=== PATIENT | female | born 1935 | race Caucasian/White ===

== ENCOUNTER → 2016-05-14 | Outpatient (CLI) | payer OTHER ==
[~2016-05-14] MED LIST: ACETAMINOPHEN-1 EAC1 PO; APAP/CODEINE ELI5 M1 OR; ASPIRIN325 PO; BISAC-EVAC10 MG RC; BISACODYL SUPP10 MG RECTAL; BISACODYL5 MG PO; CHILDREN'S650 MG/20. PO; CIPRO250 M1 PO; CLONAZEPAM 0.50.5 M1 PO; CLONAZEPAM PO; COLACE100 MG PO; CYCLOBENZAPRINE10 MG PO; DELTASONE20 MG PO; DESYREL50 MG PO; DULCOLAX RE; DUONEB 2.5-0.5 M3 ML IH; ENOXAPARIN40 MG/0.4 SQ; FAMOTIDINE20 MG PO; FLORANEX GRANU1 EACH PO; HALCION0.25 MG PO; HYDROCODON-ACE1 EAC7 PO; IBUPROFEN 600600 M1 PO; IMODIUM MULTI-1 EACH PO; KEFLEX250 MG PO; KEFLEX500 MG PO; KEPPRA 100100 MG/M1 PO; KEPPRA 500 MG500 M1 IV; KEPPRA 500 MG500 MG PO; LASIX 20 MG TAB20 MG PO; LIQUID B-11000 MCG/1 PO; LOVENOX SQ; MACROBID 100 M100 M1 PO; MULTIVITAMINS1 EAC7; NEOSPORIN OINTM15 GM; NORCO 5-325 TA1 EACH PO; ONDANSETRON ODT4 MG PO; OSELB75 PO; PAIN & FEVER325 MG PO; PHENADOZ25 MG RC; PRAVASTATIN SOD20 MG PO; PREDNISONE 20 M20 MG PO; REMERON15 MG PO; SLEEPING PILL; TRAMADOL 50 MG50 MG PO; TRAZODONE HCL50 MG PO; TUMS PO; TYLENOL325 MG PO; UNICOMPLEX M TA1 TA1 PO; VENTOLIN HFA 1818 GM INH; VITAMIN B-1100 M1 PO; ZOSYN 3.373.375 GM/1 IV
== END ==
LOC: RAD 10:59 → BC 05-18 08:54
DX: R92.2 Inconclusive mammogram (principal)

== ENCOUNTER 2016-10-02 17:34 | Emergency (ER) | payer OTHER ==
[~2016-10-02] VITALS: Ht 152.4 cm; Wt 72.6 kg
--- NOTE | ~2016-10-02 | EKG ---
[address] [address] ELECTROCARDIOGRAM REPORT Name: VALERI MARINELLI [id number] Admission: 10/02/16 Attend Phys: Discharge: 10/02/16 Date of : 37 Report #: [id number] THIS REPORT FOR: //name// [facility] ED Test Date: 2016-10-02 Test Time: 18:27:08 Pat Name: VALERI MARINELLI Department: Room: Gender: F Plate Keeper: MZOOK : 1935 Requested By: Kristine Apple Order Number: [id number] MD: Rony Arriola Measurements Intervals [place] Rate: 60 P: 40 [place]: 171 QRS: -21 QRSD: 101 T: 0 QT: 455 QTc: 455 Interpretive Statements Sinus rhythm Low voltage, precordial leads Probable left ventricular hypertrophy Borderline T abnormalities, diffuse leads Compared to ECG 06/05/2016 12:07:08 Electronically Signed On 10-03-2016 22:18:18 CDT by Rony Arriola [email or web address] <ELECTRONICALLY SIGNED> By: Rony Arriola MD [id number] 26 Rony Arriola MD /ANAI
[~2016-10-02 17:34] MED LIST changes: +CIPRO500 MG PO; +HYDROCODONE-AP1 EAC6 PO; +MOBIC15 MG PO
[2016-10-02 18:14] LABS: ABSOLUTE NEUTROPHILS 6.5 thou/uL (1.4-8.2); BASOPHILS 0.8 % (0.0-2.0); EOSINOPHILS 0.9 % (0.0-3.0); HEMATOCRIT 42.9 % (37.0-47.0); HEMOGLOBIN 14.2 gm/dL (12.0-15.0); LYMPHOCYTES 27.8 % (24.0-44.0); MCH 31.2 pg (26.0-34.0); MCV 94.5 fL (80.0-100.0); MONOCYTES 6.2 % (1.0-8.0); PLATELET COUNT 234 thou/uL (150-400); POLYS 64.3 % (36.0-66.0); RBC 4.54 mil/uL (4.20-5.00); RDW 13.5 % (10.5-14.5); WBC 10.2 thou/uL (4.0-11.0)
[2016-10-02 18:18] LABS: MANUAL DIFF NO
[2016-10-02 18:48] LABS: URINE BILIRUBIN NEGATIVE (Negative); URINE BLOOD 1+ (Negative); URINE COLOR YELLOW; URINE GLUCOSE-RANDOM* NEGATIVE (Negative); URINE KETONES NEGATIVE (Negative); URINE NITRITE POSITIVE (Negative); URINE PROTEIN (DIPSTICK) NEGATIVE (Negative); URINE UROBILINOGEN 0.2 E.U./dl (0.2-1.0)
[2016-10-02 18:58] LABS: BACTERIA >30 Many /HPF (None Seen); CASTS None Seen /LPF (None Seen); CRYSTALS None Seen /LPF (None Seen); SQUAMOUS 0-3 Few /LPF (0-3); URINE RBC 0-2 Rare /HPF (0-2); URINE WBC 0-5 Rare /HPF (0-5)
[2016-10-02 19:23] VITALS: BP 126/52
[2016-10-08] MEDS ORDERED: TYLENOL325 MG PO (17:18)
== END 2016-10-02 19:38 | disposition home or self-care (01) ==
LOC: ER 17:34
PROVIDERS: Nurse Practitioner Family
DX: S00.03XA Contusion of scalp, initial encounter (principal); F10.120 Alcohol abuse with intoxication, uncomplicated; N39.0 Urinary tract infection, site not specified; E78.00 Pure hypercholesterolemia, unspecified; Z90.710 Acquired absence of both cervix and uterus; Z98.890 Other specified postprocedural states; Z88.5 Allergy status to narcotic agent; Z88.8 Allergy status to other drugs, medicaments and biological substances; W01.0XXA Fall on same level from slipping, tripping and stumbling without subsequent striking against object, initial encounter; Y93.01 Activity, walking, marching and hiking; Y92.89 Other specified places as the place of occurrence of the external cause; Y99.8 Other external cause status

== ENCOUNTER 2016-10-03 18:59 | Inpatient (IN) | payer OTHER ==
[~2016-10-03] VITALS: Ht 152.4 cm; Wt 72.8 kg
--- NOTE | ~2016-10-03 | HC ---
[facility] [place] [address] CONSULTATION Name: VALERI MARINELLI Room #: 462-P ADM IN M.R.#: [id number] Admission: 10/03/16 Attend Phys: Rohith Persaud MD Discharge: Date of : 37 Report #: [id number] THIS REPORT FOR: //name// CC: Michelle Persaud DATE OF SERVICE: 10/05/2016 HISTORY OF PRESENT ILLNESS: The patient is a 80-year-old white female who had a fall in her apartment, sustained a scalp laceration. She denied any loss of consciousness. She was noted to have an elevated alcohol level, however, in the Emergency Department at 151. She was diagnosed with a urinary tract infection. She denied being alcoholic, notes that she only has an occasional beer every few days. She notes that she is 90% blind. The patient has been admitted for further evaluation. She has had problems with agitation, warranting Haldol. We are seeing her in Rehabilitation Medicine consultation. CT of the head was negative. She is on alcohol withdrawal program. She is on antibiotics for the urinary tract infection. 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 PAST SURGICAL HISTORY: Craniotomy for a subarachnoid hemorrhage with some residual left upper and left lower extremity numbness, bilateral cataract surgery, hemorrhoidectomy, hysterectomy, neck plate, history of broken neck x 2. MEDICATIONS: Please see the full medication listing. FAMILY HISTORY: Siblings with same genetic disorder involving vision. HABITS: ETOH as noted above. She notes weekly 2-3 times a week, 1-2 beers at a time. No history of tobacco abuse. SOCIAL HISTORY: Lives in independent living apartment at [facility]. There is reference to her not using any gait aids and another reference to her utilizing a walker. But there are visual issues, she could get around in her apartment well, but has difficulty obviously in other places. REVIEW OF SYSTEMS: Did not offer any current complaints of chest pain, shortness of breath or abdominal discomfort. PHYSICAL EXAMINATION: A 80-year-old white female sitting up in her bedside chair. Her right eye is partially closed with some apparent ptosis with a scraper excoriation on the forehead above the eye. I introduced myself as it was not apparent that she could see me. Facies otherwise appeared symmetric. She has functional range of motion of both upper extremities, strength is grade [facility] [address] [place] [address] CONSULTATION Name: VALERI MARINELLI Room #: 462-P [facility] IN M.R.#: [id number] Admission: 10/03/16 Attend Phys: Rohith Persaud MD Discharge: Date of : 37 Report #: [id number] 3+ to 4-/5. Lower extremities, no focal calf swelling. Strength grade 3+ to 4-/5. The patient was confused thinking she was at [facility] and was incorrect regarding the year. She does follow basic 1 step commands albeit with some latency. ASSESSMENT: A 80-year-old white female with the following problem list: 1. Fall with head laceration/cognitive deficits. She has had some problems with agitation and warranting Haldol. 2. Blindness/approximately 90% with history of retinitis pigmentosa. 3. ETOH use with elevated ETOH on admission. 4. Recent urinary tract infection. 5. Hypokalemia and hypomagnesemia that are being replaced. PLAN: Therapy evaluations are underway. Insurance will need to be checked regarding rehab therapy issues as she further medically stabilizes. Thank you for asking us to assist in this patient's care. ADDENDUM: She has had bilateral wrists restrained per order from yesterday as well. By: 1038 1105 Finn Kirby MD /nt
--- NOTE | ~2016-10-03 | EKG ---
[address] [place] [address] ELECTROCARDIOGRAM REPORT Name: VALERI MARINELLI Room #: 462-P ADM IN M.R.#: [id number] Admission: 10/03/16 Attend Phys: Airam Marie Discharge: Date of : 37 Report #: [id number] THIS REPORT FOR: //name// [facility] ED Test Date: 2016-10-03 Test Time: 19:05:52 Pat Name: VALERI MARINELLI Department: Room: 462 Gender: F Sustainable Design Coordinator: HOANG : 1935 Requested By: Kathleen Mcleod Order Number: [id number] MD: Rony Arriola Measurements Intervals [place] Rate: 63 P: 44 ND: 173 QRS: -21 QRSD: 99 T: 7 QT: 439 QTc: 450 Interpretive Statements Sinus rhythm Borderline left axis deviation Low voltage, precordial leads Borderline T abnormalities, diffuse leads Compared to ECG 06/05/2016 12:07:08 No significant changes Electronically Signed On 10-03-2016 22:23:40 CDT by Rony Arriola [email or web address] <ELECTRONICALLY SIGNED> By: Rony Arriola MD 10/03/16 2223 04 Rony Arriola MD /EPI
[2016-10-03 19:01] VITALS: BP 121/46
[2016-10-03 20:27] LABS: ABSOLUTE NEUTROPHILS 5.3 thou/uL (1.4-8.2); BASOPHILS 1.2 % (0.0-2.0); EOSINOPHILS 1.3 % (0.0-3.0); HEMATOCRIT 37.9 % (37.0-47.0); HEMOGLOBIN 12.9 gm/dL (12.0-15.0); LYMPHOCYTES 33.4 % (24.0-44.0); MCH 31.7 pg (26.0-34.0); PLATELET COUNT 253 thou/uL (150-400); POLYS 55.1 % (36.0-66.0); RBC 4.07 mil/uL (4.20-5.00); RDW 13.4 % (10.5-14.5); WBC 9.6 thou/uL (4.0-11.0)
[2016-10-03 20:28] LABS: MANUAL DIFF NO
[2016-10-03 20:39] LABS: ANION GAP 12 mmol/L (7-16); BUN 7 mg/dL (7-18); CALCIUM 6.6 mg/dL (8.5-10.1); CHLORIDE 113 mmol/L (98-107); CO2 20 mmol/L (21-32); CREATININE 0.5 mg/dL (0.6-1.0); GLUCOSE 69 mg/dL (74-106); SODIUM 145 mmol/L (136-145)
[2016-10-03 20:41] LABS: POTASSIUM 2.7 mmol/L (3.5-5.1)
[2016-10-03 20:42] LABS: TROPONIN-I < 0.04 ng/mL (<0.04-0.07)
[2016-10-03 21:45] VITALS: BP 133/71
[2016-10-03 22:05] VITALS: BP 126/50
[2016-10-04] VITALS: BP 126/53
[2016-10-04 01:16] LABS: ALBUMIN 2.8 g/dL (3.4-5.0); ALKALINE PHOSPHATASE 61 U/L (46-116); DIRECT BILIRUBIN < 0.1 mg/dL (<0.1-0.3); SGOT 18 U/L (15-37); SGPT 12 U/L (30-65); TOTAL BILIRUBIN 0.2 mg/dL (<0.1-1.0); TOTAL PROTEIN 5.2 g/dL (6.4-8.2)
[2016-10-04 04:08] VITALS: BP 149/77
[2016-10-04 08:11] VITALS: BP 170/73
[2016-10-04 11:49] LABS: CREATININE 0.6 mg/dL (0.6-1.0); MAGNESIUM 2.3 mg/dL (1.8-2.4)
[2016-10-04 11:55] LABS: CALCIUM 8.8 mg/dL (8.5-10.1); POTASSIUM 5.1 mmol/L (3.5-5.1)
[2016-10-04 13:28] VITALS: BP 158/74
[2016-10-04 16:54] VITALS: BP 132/75
[2016-10-04 20:16] VITALS: BP 162/77
[2016-10-05 05:41] LABS: HEMATOCRIT 40.2 % (37.0-47.0); HEMOGLOBIN 13.3 gm/dL (12.0-15.0); MCH 31.2 pg (26.0-34.0); MCHC 33.2 g/dL (28.0-37.0); MCV 93.8 fL (80.0-100.0); RBC 4.28 mil/uL (4.20-5.00); RDW 13.2 % (10.5-14.5); WBC 12.2 thou/uL (4.0-11.0)
[2016-10-05 05:42] LABS: MANUAL DIFF YES
[2016-10-05 05:54] LABS: CALCIUM 8.4 mg/dL (8.5-10.1); CREATININE 0.5 mg/dL (0.6-1.0); POTASSIUM 4.2 mmol/L (3.5-5.1)
[2016-10-05 06:03] VITALS: BP 134/50
[2016-10-05 08:32] LABS: ABSOLUTE NEUTROPHILS 7.4 thou/uL (1.4-8.2); TOTAL CELL COUNT 100
[2016-10-05 10:17] VITALS: BP 150/86
[2016-10-05 12:44] LABS: PLATELET COUNT 184 thou/uL (150-400)
[2016-10-05 14:47] VITALS: BP 172/76
[2016-10-05 16:52] VITALS: BP 145/82
[2016-10-05 18:57] VITALS: BP 154/86
[2016-10-06 04:30] VITALS: BP 133/58
[2016-10-06 09:00] VITALS: BP 134/48
[2016-10-06 11:41] VITALS: BP 143/70
[2016-10-06 15:29] VITALS: BP 152/77
[2016-10-06 20:07] VITALS: BP 179/55
[2016-10-07 03:30] VITALS: BP 148/69
[2016-10-07 08:00] VITALS: BP 170/86
[2016-10-07] MEDS ORDERED: TRAZODONE HCL50 MG PO (11:54)
[2016-10-07] MEDS ORDERED: PEPCID20 MG PO (11:54)
[2016-10-07] MEDS ORDERED: KEFLEX500 MG PO (11:54)
[2016-10-07] MEDS ORDERED: TRIPLE ANTIBIOT28 G1 TOP (11:54)
[2016-10-07] MEDS ORDERED: PRENATAL PO (11:54)
[2016-10-07] MEDS ORDERED: FOLIC ACID1 MG PO (11:54)
[2016-10-07] MEDS ORDERED: VITAMIN B-1100 M2 PO (11:54)
[2016-10-07 12:00] VITALS: BP 166/82
[2016-10-07 14:06] VITALS: BP 166/82
[2016-10-07 14:26] VITALS: BP 166/82
[2016-10-08] MEDS ORDERED: TYLENOL325 MG PO (17:18)
== END 2016-10-07 14:41 | disposition home health service (06) | DRG 580 ==
LOC: ER 18:59 → EROBS 21:06 → 4W 21:06
PROVIDERS: Emergency Medicine; Internal Medicine; Nurse Practitioner Acute Care
PROC: 0WQ0XZZ Repair Head, External Approach (ICD-10-PCS; principal; 2016-10-03)
DX: S01.01XA Laceration without foreign body of scalp, initial encounter (principal); N39.0 Urinary tract infection, site not specified; E78.00 Pure hypercholesterolemia, unspecified; E87.6 Hypokalemia; E83.42 Hypomagnesemia; H54.0 Blindness, both eyes; F10.129 Alcohol abuse with intoxication, unspecified; W18.39XA Other fall on same level, initial encounter; E87.8 Other disorders of electrolyte and fluid balance, not elsewhere classified; Z90.710 Acquired absence of both cervix and uterus; Z79.899 Other long term (current) drug therapy; Z88.5 Allergy status to narcotic agent; Z88.8 Allergy status to other drugs, medicaments and biological substances; Z98.42 Cataract extraction status, left eye; Z98.41 Cataract extraction status, right eye; Z84.89 Family history of other specified conditions; Z87.440 Personal history of urinary (tract) infections; Y93.89 Activity, other specified; Y92.038 Other place in apartment as the place of occurrence of the external cause; Y99.8 Other external cause status; B96.1 Klebsiella pneumoniae [K. pneumoniae] as the cause of diseases classified elsewhere
CPT/HCPCS: 10045

== ENCOUNTER 2016-12-03 10:09 | Emergency (ER) | payer OTHER ==
[~2016-12-03] VITALS: Ht 152.4 cm; Wt 69.0 kg
[~2016-12-03 10:09] MED LIST changes: +FOLIC ACID1 MG PO; +PEPCID20 MG PO; +PRENATAL PO; +TRIPLE ANTIBIOT28 G1 TOP; +VITAMIN B-1100 M2 PO
[2016-12-03 13:13] VITALS: BP 132/56
== END 2016-12-03 13:00 | disposition home or self-care (01) ==
LOC: ER 10:09
DX: M84.375A Stress fracture, left foot, initial encounter for fracture (principal); F10.99 Alcohol use, unspecified with unspecified alcohol-induced disorder; E78.00 Pure hypercholesterolemia, unspecified; Z90.710 Acquired absence of both cervix and uterus; Z98.890 Other specified postprocedural states; Z88.5 Allergy status to narcotic agent; Z88.8 Allergy status to other drugs, medicaments and biological substances

== ENCOUNTER 2017-02-21 03:38 | Emergency (ER) | payer OTHER ==
[~2017-02-21] VITALS: Ht 152.4 cm; Wt 68.0 kg
--- NOTE | ~2017-02-21 | EKG ---
[facility] [place] [address] ELECTROCARDIOGRAM REPORT Name: VALERI MARINELLI [facility] [id number] Admission: 02/21/17 Attend Phys: Discharge: 02/21/17 Date of : 37 Report #: [id number] THIS REPORT FOR: //name// [facility] ED Test Date: 2017-02-21 Test Time: 05:43:04 Pat Name: VALERI MARINELLI Department: Room: Gender: F Senior Biostatistician: [facility] : 1935 Requested By: Carson Mccormack Order Number: [id number] MD: Reg Camarena Measurements Intervals [place] Rate: 69 P: 68 [place]: 167 QRS: -17 QRSD: 96 T: -2 QT: 432 QTc: 463 Interpretive Statements Sinus rhythm Borderline left axis deviation Abnormal R-wave progression, early transition Borderline T abnormalities, inferior leads Compared to ECG 10/03/2016 19:05:52 No significant changes Electronically Signed On 02-21-2017 10:15:32 PIN BALL MACHINE MECHANIC by Reg Camarena [email or web address] <ELECTRONICALLY SIGNED> By: Reg Camarena MD, [facility] 02/21/17 1015 0543 0543 Reg Camarena MD, [facility] /EPI
[2017-02-21 04:11] LABS: URINE BILIRUBIN NEGATIVE (Negative); URINE BLOOD TRACE (Negative); URINE CLARITY CLEAR; URINE COLOR YELLOW; URINE GLUCOSE-RANDOM* NEGATIVE (Negative); URINE KETONES NEGATIVE (Negative); URINE LEUKOCYTES-REFLEX NEGATIVE (Negative); URINE NITRITE-REFLEX NEGATIVE (Negative); URINE PROTEIN (DIPSTICK) NEGATIVE (Negative); URINE SPECIFIC GRAVITY 1.015 (1.005-1.035); URINE UROBILINOGEN 0.2 E.U./dl (0.2-1.0)
[2017-02-21 04:20] LABS: AMP/METHAMP Negative (Negative); BARBITURATES Negative (Negative); BENZODIAZEPINES Negative (Negative); COCAINE Negative (Negative); METHADONE Negative (Negative); OPIATES POSITIVE (Negative); PCP Negative (Negative)
[2017-02-21 05:35] LABS: ABSOLUTE NEUTROPHILS 7.2 thou/uL (1.4-8.2); BASOPHILS 0.5 % (0.0-2.0); EOSINOPHILS 0.8 % (0.0-3.0); HEMATOCRIT 37.2 % (37.0-47.0); HEMOGLOBIN 12.6 gm/dL (12.0-15.0); LYMPHOCYTES 17.2 % (24.0-44.0); MCH 31.1 pg (26.0-34.0); MCHC 33.9 g/dL (28.0-37.0); MCV 91.8 fL (80.0-100.0); MONOCYTES 9.1 % (1.0-8.0); PLATELET COUNT 171 thou/uL (150-400); POLYS 72.4 % (36.0-66.0); RBC 4.05 mil/uL (4.20-5.00)
[2017-02-21 05:59] LABS: ANION GAP 9 mmol/L (7-16); BUN 7 mg/dL (7-18); CALCIUM 9.1 mg/dL (8.5-10.1); CHLORIDE 105 mmol/L (98-107); CO2 26 mmol/L (21-32); CREATININE 0.8 mg/dL (0.6-1.0); GLUCOSE 121 mg/dL (74-106); SODIUM 140 mmol/L (136-145)
[2017-02-21 06:07] LABS: ALBUMIN 3.7 g/dL (3.4-5.0); MAGNESIUM 1.8 mg/dL (1.8-2.4); SALICYLATE < 2.8 mg/dL (2.8-20.0); SGOT 24 U/L (15-37); SGPT 17 U/L (30-65); TOTAL BILIRUBIN 0.5 mg/dL (<0.1-1.0); TOTAL PROTEIN 6.7 g/dL (6.4-8.2); TROPONIN-I < 0.04 ng/mL (<0.06)
[2017-02-21] MEDS ORDERED: TRAMADOL 50 MG50 MG PO (06:15)
[2017-02-21 08:00] VITALS: BP 162/66
== END 2017-02-21 08:02 | disposition home or self-care (01) ==
LOC: ER 03:38
PROVIDERS: Emergency Medicine
DX: R41.0 Disorientation, unspecified (principal); S51.011A Laceration without foreign body of right elbow, initial encounter; S60.221A Contusion of right hand, initial encounter; E78.00 Pure hypercholesterolemia, unspecified; Z88.8 Allergy status to other drugs, medicaments and biological substances; Z88.5 Allergy status to narcotic agent; W01.0XXA Fall on same level from slipping, tripping and stumbling without subsequent striking against object, initial encounter; Y93.89 Activity, other specified; Y92.89 Other specified places as the place of occurrence of the external cause; Y99.8 Other external cause status

== ENCOUNTER 2017-02-22 08:17 | Observation (INO) | payer OTHER ==
[~2017-02-22] VITALS: Ht 152.4 cm; Wt 68.0 kg
--- NOTE | ~2017-02-22 | EKG ---
[address] [place] [address] ELECTROCARDIOGRAM REPORT Name: VALERI MARINELLI Room #: 170-10 ADM IN M.R.#: [id number] Admission: 02/22/17 Attend Phys: Dayne Almazan DO Discharge: Date of : 37 Report #: [id number] THIS REPORT FOR: //name// [facility] ED Test Date: 2017-02-22 Test Time: 08:38:59 Pat Name: VALERI MARINELLI Department: Room: 170 Gender: F Spring Machine Operator: mary : 1935 Requested By: Gerson White Order Number: [id number] MD: Rony Arriola Measurements Intervals [place] Rate: 67 P: 55 [place]: 167 QRS: -15 QRSD: 99 T: -19 QT: 450 QTc: 475 Interpretive Statements Sinus rhythm Borderline left axis deviation Abnormal R-wave progression, early transition Borderline T abnormalities, inferior leads Compared to ECG 02/21/2017 05:43:04 No significant changes Electronically Signed On 02-22-2017 15:31:15 GROUP RESERVATIONS COORDINATOR by Rony Arriola [email or web address] <ELECTRONICALLY SIGNED> By: Rony Arriola MD 02/22/17 1531 Rony Arriola MD /EPI
--- NOTE | ~2017-02-22 | HC ---
[facility] [place] [address] CONSULTATION Name: VALERI MARINELLI Room #: 353-P SOHA Barton#: [id number] Admission: 02/22/17 Attend Phys: Dayne Almazan DO Discharge: 02/25/17 Date of : 37 Report #: [id number] THIS REPORT FOR: //name// CC: Michelle Almazan DATE OF SERVICE: 02/23/2017 HISTORY OF PRESENT ILLNESS: The patient is a 81-year-old white female with a history of several falls. She notes she typically would fall every 2-3 months, but she has had problems especially over the last couple of weeks when she notes that her son and with the and she has been having some difficulty in the aftermath of that. She does have a history of chronic pain syndrome, has been seen by Geriatrics here at the hospital and thought to have some depression and likely some of her medication use is contributing to these falls. She also had been diagnosed with urinary tract infection a couple of days prior to this most current admission. She has a known history of alcohol abuse, but alcohol was noted to be negative at the time of admission. We are seeing her in rehabilitation medicine consultation. PAST MEDICAL HISTORY: Includes prior craniotomy for a subarachnoid hemorrhage with some residual left upper extremity and lower extremity numbness and weakness. She has chronic pain syndrome, history of ETOH abuse in the past, and urinary tract infection. ALLERGIES: Multiple, see the listing. MEDICATIONS: Please see the full medication listing as well. SOCIAL HISTORY: Lives in an independent living apartment alone, used a walker. She does have visual problems with history of retinitis pigmentosa and is noted to be legally blind. She did use a walker for ambulation premorbidly. REVIEW OF SYSTEMS: No current complaints of chest pain, shortness of breath, or abdominal discomfort. PHYSICAL EXAMINATION: GENERAL: A 81-year-old white female, in no obvious distress. The patient is alert, pleasant. VITAL SIGNS: Last recorded temperature 98, pulse 66, respirations 18, and blood pressure is 149/68. HEENT: She does have the decreased vision and is noted to be legally blind. Facies are symmetric. NEUROLOGIC: Functional range of motion of the upper extremity. Strength is grade 4-/5. DTRs are trace to 1. Lower extremities, no focal calf swelling. Functional range of motion. Strength is grade 3+ to 4-/5. DTRs are trace to 1. [facility] [address] [place] [address] CONSULTATION Name: VALERI MARINELLI Room #: 353-P [facility] Melissa Barton#: [id number] Admission: 02/22/17 Attend Phys: Dayne Almazan DO Discharge: 02/25/17 Date of : 37 Report #: [id number] Therapy evaluations are underway. She is currently contact guard for transfers, did ambulate 4 steps, contact guard assistance. ASSESSMENT: A 81-year-old white female with the following problem list: 1. History of multiple falls. Agree with Geriatrics that likely her medication use is contributing. 2. Depression/adjustment disorder/grieving. Recently lost her son a couple of weeks ago. 3. Recent urinary tract infection. 4. Chronic pain syndrome. 5. Past history of ETOH abuse. Level was not elevated upon admission. 6. History of legally blind with retinitis pigmentosa. PLAN: Therapies are continuing to work with her on transfers, mobility, and ADL issues. She is wanting to return directly back to her own apartment. I encouraged her to show what she could do functionally. Case Management to follow as well. Insurance will need to be checked regarding rehab therapy issues if warranted. We will be glad to follow along with you regarding her rehab therapy needs. <ELECTRONICALLY SIGNED> By: Finn Kirby MD 04/08/17 1408 1213 2138 Finn Kirby MD /nt
[2017-02-22 08:17] VITALS: BP 153/74
[2017-02-22 08:53] LABS: URINE BILIRUBIN NEGATIVE (Negative); URINE BLOOD NEGATIVE (Negative); URINE CLARITY CLEAR; URINE COLOR YELLOW; URINE GLUCOSE-RANDOM* NEGATIVE (Negative); URINE KETONES 1+ (Negative); URINE LEUKOCYTES-REFLEX NEGATIVE (Negative); URINE NITRITE-REFLEX NEGATIVE (Negative); URINE PROTEIN (DIPSTICK) NEGATIVE (Negative); URINE UROBILINOGEN 0.2 E.U./dl (0.2-1.0)
[2017-02-22 08:59] LABS: HEMOGLOBIN 13.5 gm/dL (12.0-15.0); MCH 31.7 pg (26.0-34.0); MCHC 34.6 g/dL (28.0-37.0); MCV 91.5 fL (80.0-100.0); RBC 4.26 mil/uL (4.20-5.00); RDW 13.1 % (10.5-14.5); WBC 10.4 thou/uL (4.0-11.0)
[2017-02-22 09:06] LABS: AMP/METHAMP Negative (Negative); BARBITURATES Negative (Negative); BENZODIAZEPINES Negative (Negative); COCAINE Negative (Negative); METHADONE Negative (Negative); OPIATES POSITIVE (Negative); PCP Negative (Negative)
[2017-02-22 09:14] LABS: ANION GAP 8 mmol/L (7-16); BUN 9 mg/dL (7-18); CALCIUM 9.7 mg/dL (8.5-10.1); CHLORIDE 106 mmol/L (98-107); CO2 28 mmol/L (21-32); CREATININE 0.8 mg/dL (0.6-1.0); GLUCOSE 120 mg/dL (74-106); POTASSIUM 4.2 mmol/L (3.5-5.1); SODIUM 142 mmol/L (136-145)
[2017-02-22 09:22] LABS: TROPONIN-I < 0.04 ng/mL (<0.06)
[2017-02-22 17:20] VITALS: BP 152/68
[2017-02-22 18:16] VITALS: BP 152/68
[2017-02-22 23:57] VITALS: BP 139/55
[2017-02-23 03:54] VITALS: BP 166/72
[2017-02-23 04:40] LABS: CALCIUM 8.5 mg/dL (8.5-10.1); CREATININE 0.7 mg/dL (0.6-1.0); POTASSIUM 3.4 mmol/L (3.5-5.1)
[2017-02-23 07:07] LABS: ABSOLUTE NEUTROPHILS 4.4 thou/uL (1.4-8.2); BASOPHILS 0.4 % (0.0-2.0); EOSINOPHILS 2.2 % (0.0-3.0); HEMATOCRIT 35.1 % (37.0-47.0); HEMOGLOBIN 12.4 gm/dL (12.0-15.0); LYMPHOCYTES 25.8 % (24.0-44.0); MCH 31.7 pg (26.0-34.0); MCHC 35.4 g/dL (28.0-37.0); MCV 89.4 fL (80.0-100.0); MONOCYTES 8.8 % (1.0-8.0); PLATELET COUNT 162 thou/uL (150-400); POLYS 62.8 % (36.0-66.0); RBC 3.93 mil/uL (4.20-5.00); RDW 13.3 % (10.5-14.5)
[2017-02-23 07:55] VITALS: BP 149/68
[2017-02-23 17:10] VITALS: BP 171/87
[2017-02-23 19:40] VITALS: BP 134/71
[2017-02-24 03:38] VITALS: BP 129/69
[2017-02-24 05:50] LABS: ABSOLUTE NEUTROPHILS 5.2 thou/uL (1.4-8.2); BASOPHILS 0.3 % (0.0-2.0); EOSINOPHILS 2.2 % (0.0-3.0); HEMATOCRIT 35.9 % (37.0-47.0); HEMOGLOBIN 12.2 gm/dL (12.0-15.0); LYMPHOCYTES 25.2 % (24.0-44.0); MCH 31.8 pg (26.0-34.0); MCHC 33.9 g/dL (28.0-37.0); MCV 93.6 fL (80.0-100.0); MONOCYTES 9.8 % (1.0-8.0); PLATELET COUNT 191 thou/uL (150-400); POLYS 62.5 % (36.0-66.0); RBC 3.84 mil/uL (4.20-5.00); RDW 13.5 % (10.5-14.5); WBC 8.3 thou/uL (4.0-11.0)
[2017-02-24 06:07] LABS: CALCIUM 8.9 mg/dL (8.5-10.1); CREATININE 0.7 mg/dL (0.6-1.0); POTASSIUM 3.8 mmol/L (3.5-5.1)
[2017-02-24 08:33] VITALS: BP 174/87
[2017-02-24 13:25] VITALS: BP 170/82
[2017-02-24 17:19] VITALS: BP 165/75
[2017-02-24 19:26] VITALS: BP 151/75
[2017-02-25 04:17] VITALS: BP 130/77
[2017-02-25 08:15] VITALS: BP 157/75
[2017-02-25 15:29] VITALS: BP 188/88
== END 2017-02-25 18:10 ==
LOC: ER 08:17 → 3W 11:50 → EROBS 11:50 → 3W 11:50
PROVIDERS: Emergency Medicine; Family Medicine
DX: R29.6 Repeated falls (principal); G93.40 Encephalopathy, unspecified; E78.00 Pure hypercholesterolemia, unspecified; H35.52 Pigmentary retinal dystrophy; H54.7 Unspecified visual loss; R41.0 Disorientation, unspecified; S51.801A Unspecified open wound of right forearm, initial encounter; S60.221A Contusion of right hand, initial encounter; F32.9 Major depressive disorder, single episode, unspecified; N39.0 Urinary tract infection, site not specified; F10.10 Alcohol abuse, uncomplicated; G89.29 Other chronic pain

== ENCOUNTER 2017-12-03 16:07 | Emergency (ER) | payer OTHER ==
[~2017-12-03] VITALS: Ht 157.5 cm; Wt 74.8 kg
[2017-12-03] MEDS ORDERED: NORCO 5-325 TA1 EACH PO (16:12)
[2017-12-03] MEDS ORDERED: TRAMADOL 50 MG50 MG PO (17:51)
[2017-12-03 18:22] VITALS: BP 119/63
== END 2017-12-03 18:23 ==
LOC: ER 16:07
DX: S50.11XA Contusion of right forearm, initial encounter (principal); S00.83XA Contusion of other part of head, initial encounter; E78.00 Pure hypercholesterolemia, unspecified; Z88.4 Allergy status to anesthetic agent; Z88.5 Allergy status to narcotic agent; Z88.8 Allergy status to other drugs, medicaments and biological substances; Z90.710 Acquired absence of both cervix and uterus; Z98.890 Other specified postprocedural states; W18.39XA Other fall on same level, initial encounter; Y92.009 Unspecified place in unspecified non-institutional (private) residence as the place of occurrence of the external cause; Y93.89 Activity, other specified; Y99.8 Other external cause status

== ENCOUNTER → 2017-12-06 | Outpatient (CLI) | payer OTHER ==
[~2017-12-06] MED LIST changes: +TYLENOL EXTRA500 MG PO
== END ==
LOC: RAD 01:29
DX: Z12.31 Encounter for screening mammogram for malignant neoplasm of breast (principal)

== ENCOUNTER 2017-12-07 09:13 | Emergency (ER) | payer OTHER ==
[~2017-12-07] VITALS: Ht 157.5 cm; Wt 70.3 kg
[~2017-12-07 09:13] MED LIST changes: -TYLENOL EXTRA500 MG PO
[2017-12-07 12:40] VITALS: BP 138/61
[2017-12-08] MEDS ORDERED: TYLENOL EXTRA500 MG PO (09:20)
[2017-12-08] MEDS ORDERED: ASPIRIN325 PO (09:20)
== END 2017-12-07 12:41 | disposition home or self-care (01) ==
LOC: ER 09:13
DX: M25.552 Pain in left hip (principal); G89.29 Other chronic pain; M54.5 Low back pain; Z88.4 Allergy status to anesthetic agent; Z88.5 Allergy status to narcotic agent; Z88.8 Allergy status to other drugs, medicaments and biological substances; Z90.710 Acquired absence of both cervix and uterus; Z98.890 Other specified postprocedural states; E78.00 Pure hypercholesterolemia, unspecified

== ENCOUNTER 2017-12-08 09:12 | Inpatient (IN) | payer OTHER ==
[~2017-12-08] VITALS: Ht 149.9 cm; Wt 68.0 kg
[2017-12-08 09:13] VITALS: BP 128/49
[2017-12-08] MEDS ORDERED: TYLENOL EXTRA500 MG PO (09:20)
[2017-12-08] MEDS ORDERED: ASPIRIN325 PO (09:20)
[2017-12-08 10:58] LABS: ABSOLUTE NEUTROPHILS 6.1 thou/uL (1.4-8.2); EOSINOPHILS 0.9 % (0.0-3.0); HEMOGLOBIN 13.7 gm/dL (12.0-15.0); LYMPHOCYTES 21.4 % (24.0-44.0); MCHC 34.3 g/dL (28.0-37.0); MCV 93.3 fL (80.0-100.0); MONOCYTES 8.6 % (1.0-8.0); PLATELET COUNT 237 thou/uL (150-400); POLYS 68.1 % (36.0-66.0); RBC 4.29 mil/uL (4.20-5.00); RDW 13.5 % (10.5-14.5); WBC 8.9 thou/uL (4.0-11.0)
[2017-12-08 11:05] LABS: CALCIUM 9.4 mg/dL (8.5-10.1); CREATININE 0.9 mg/dL (0.6-1.0); POTASSIUM 4.7 mmol/L (3.5-5.1)
[2017-12-08 11:16] LABS: URINE BILIRUBIN NEGATIVE (Negative); URINE BLOOD NEGATIVE (Negative); URINE CLARITY SL CLOUDY; URINE COLOR YELLOW; URINE GLUCOSE-RANDOM* NEGATIVE (Negative); URINE KETONES TRACE (Negative); URINE NITRITE-REFLEX NEGATIVE (Negative); URINE PROTEIN (DIPSTICK) NEGATIVE (Negative); URINE UROBILINOGEN 0.2 E.U./dl (0.2-1.0)
[2017-12-08 11:17] LABS: URINE LEUKOCYTES-REFLEX TRACE (Negative)
[2017-12-08 11:43] LABS: PROTIME 10.6 Seconds (9.3-11.4)
[2017-12-08 13:37] VITALS: BP 128/49
[2017-12-08 14:11] LABS: FOLIC ACID 32.6 ng/mL (8.6-58.9)
[2017-12-08 14:21] VITALS: BP 148/60
[2017-12-08 14:47] VITALS: BP 146/73
[2017-12-08 17:35] VITALS: BP 165/66
[2017-12-08 19:08] VITALS: BP 120/50
[2017-12-09 04:02] VITALS: BP 140/67
[2017-12-09 05:35] LABS: ABSOLUTE NEUTROPHILS 4.5 thou/uL (1.4-8.2); BASOPHILS 0.6 % (0.0-2.0); EOSINOPHILS 2.1 % (0.0-3.0); HEMATOCRIT 41.4 % (37.0-47.0); HEMOGLOBIN 13.9 gm/dL (12.0-15.0); LYMPHOCYTES 26.3 % (24.0-44.0); MCH 32.1 pg (26.0-34.0); MCHC 33.7 g/dL (28.0-37.0); MCV 95.2 fL (80.0-100.0); MONOCYTES 8.4 % (1.0-8.0); PLATELET COUNT 188 thou/uL (150-400); POLYS 62.6 % (36.0-66.0); RBC 4.35 mil/uL (4.20-5.00); RDW 13.5 % (10.5-14.5); WBC 7.3 thou/uL (4.0-11.0)
[2017-12-09 06:12] LABS: CREATININE 0.8 mg/dL (0.6-1.0); POTASSIUM 4.4 mmol/L (3.5-5.1)
[2017-12-09 19:30] VITALS: BP 156/80
[2017-12-10 04:01] VITALS: BP 153/75
[2017-12-10 07:35] VITALS: BP 147/65
[2017-12-10 15:15] VITALS: BP 142/60
[2017-12-10 19:43] VITALS: BP 131/67
[2017-12-11 00:01] VITALS: BP 131/67
[2017-12-11 03:40] VITALS: BP 141/67
[2017-12-11 07:25] VITALS: BP 139/58
[2017-12-11 12:32] VITALS: BP 162/65
[2017-12-11 21:19] VITALS: BP 122/64
[2017-12-12 07:25] VITALS: BP 124/63
[2017-12-12 19:37] VITALS: BP 125/60
[2017-12-13 08:09] VITALS: BP 142/61
[2017-12-13 12:29] VITALS: BP 142/61
[2017-12-13] MEDS ORDERED: ERGOCALCIF50000 UNIT PO (13:21)
[2017-12-13] MEDS ORDERED: MIRALAX17 GM PO (13:21)
[2017-12-13] MEDS ORDERED: VITAMIN B-12500 MCG PO (13:21)
[2017-12-13] MEDS ORDERED: COLACE100 MG PO (13:21)
== END 2017-12-13 16:45 | disposition home health service (06) | DRG 544 ==
LOC: ER 09:12 → SICU 11:21 → 4W 11:21 → EROBS 11:21 → 4W 14:00 → SICU 12-11 12:29
PROVIDERS: Internal Medicine; Nurse Practitioner; Physician Assistant
DX: M48.56XA Collapsed vertebra, not elsewhere classified, lumbar region, initial encounter for fracture (principal); Y90.9 Presence of alcohol in blood, level not specified; H35.52 Pigmentary retinal dystrophy; H54.8 Legal blindness, as defined in USA; M48.061 Spinal stenosis, lumbar region without neurogenic claudication; M62.84 Sarcopenia; F10.10 Alcohol abuse, uncomplicated; G47.00 Insomnia, unspecified; K59.00 Constipation, unspecified; R29.6 Repeated falls; E78.5 Hyperlipidemia, unspecified; Z90.710 Acquired absence of both cervix and uterus; Z98.42 Cataract extraction status, left eye; Z23 Encounter for immunization; Z98.41 Cataract extraction status, right eye; Z79.1 Long term (current) use of non-steroidal anti-inflammatories (NSAID); Z79.899 Other long term (current) drug therapy; Z88.5 Allergy status to narcotic agent; Z88.8 Allergy status to other drugs, medicaments and biological substances
CPT/HCPCS: 10040; 15002

== ENCOUNTER 2017-12-27 15:30 | Emergency (ER) | payer OTHER ==
[~2017-12-27] VITALS: Ht 149.9 cm; Wt 68.5 kg
[~2017-12-27 15:30] MED LIST changes: +ERGOCALCIF50000 UNIT PO; +MIRALAX17 GM PO; +TYLENOL EXTRA500 MG PO; +VITAMIN B-12500 MCG PO
[2017-12-27] MEDS ORDERED: NORCO 5-325 TA1 EACH PO (16:21)
[2017-12-27 18:07] VITALS: BP 98/44
== END 2017-12-27 18:08 | disposition home or self-care (01) ==
LOC: ER 15:30
DX: S93.692A Other sprain of left foot, initial encounter (principal); E78.00 Pure hypercholesterolemia, unspecified; Z90.710 Acquired absence of both cervix and uterus; Z98.890 Other specified postprocedural states; Z88.4 Allergy status to anesthetic agent; Z88.5 Allergy status to narcotic agent; Z88.8 Allergy status to other drugs, medicaments and biological substances; X50.1XXA Overexertion from prolonged static or awkward postures, initial encounter; Y92.89 Other specified places as the place of occurrence of the external cause; Y93.89 Activity, other specified; Y99.8 Other external cause status

== ENCOUNTER 2018-05-27 17:21 | Inpatient (IN) | payer OTHER ==
[~2018-05-27] VITALS: Ht 152.4 cm; Wt 64.0 kg
--- NOTE | ~2018-05-27 | D ---
[facility] [place] [address] DISCHARGE SUMMARY Name: VALERI MARINELLI Room #: 520B-B [facility] IN M.R.#: [id number] Admission: 05/27/18 ������������������ Attend Phys: Adams Soares DO Discharge: 06/08/18 ������������������ Date of : 37 Report #: [id number] THIS REPORT FOR: //name// CC: Adams Mckinney DATE OF SERVICE: 06/08/2018 INPATIENT PSYCHIATRIC DISCHARGE SUMMARY ATTENDING PHYSICIAN: Adams Soares DO. INSPECTOR AND CLERK AT THE TIME OF DISCHARGE: Doug Lira M.D. DISCHARGE DIAGNOSES: As follows: Unspecified psychosis, resolved; major neurocognitive disorder, unspecified etiology, mild degree. 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 DISCHARGE INSTRUCTIONS: Discharge diet will be per the Hospitalist Service. Activity level as tolerated. The patient is visually impaired. 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 REASON FOR ADMISSION: Psychosis, called 911. HOSPITAL COURSE: The patient was admitted to the Adult Psychiatry Unit. Initially, she was titrated on risperidone to 0.5 mg at night and 0.5 mg b.i.d. She developed quite a bit of drooling and it was reduced back to 0.25 mg twice a day; in addition, treated for sleep with trazodone. This past weekend, she was complaining of pain in her big right toe. Podiatry was consulted. Dr. Dwakins saw her. Dr. Dawkins ordered a Doppler ultrasound, which was completed this morning, 06/08/2018. It showed a 70% to 80% stenosis of the superficial right femoral artery. Dr. Hunt was consulted by Dr. Dawkins, who recommended prompt endovascular intervention. I discussed with the parties involved. [facility] regulations prohibited this. , she was admitted to the Psychiatry Unit and would require discharge and admission to the Medical Unit. LABORATORY DATA: Laboratories this admission, H and H 12.7 and 36.9, white count 8.5 and platelets 211,000. CMP within normal limits, except estimated GFR of 81, magnesium 2.1. This was done on 05/27/2018. Urine opiate screen was positive. Urinalysis was negative. [address] [address] DISCHARGE SUMMARY Name: VALERI MARINELLI Room #: 520B-B [facility] IN [facility].#: [id number] Admission: 05/27/18 ������������������ Attend Phys: Adams Soares DO Discharge: 06/08/18 ������������������ Date of : 37 Report #: [id number] IMAGING: Done this admission, head CT on 05/27/2018 showed no evidence of acute intracranial hemorrhage or other acute intracranial abnormality. Chest x-ray was negative. Lower extremity Doppler was significant with 70% to 80% degree stenosis. VITAL SIGNS ON THE DAY OF DISCHARGE: Temperature 36.6, pulse 63, respirations 18, BP 128/56 and O2 sat 97%. MENTAL STATUS EXAMINATION: Seen in wheelchair mainly, can ambulate with min assist. This is a well-developed, elderly appearing female, appearing older than stated age. Attention limited. Concentration limited. Speech, normal rate. Thought process is linear and goal directed. Thought content, somatically focused. She complained of pain on her toe. Denied SI or HI. Denied auditory, visual or tactile hallucinations. Memory noted to be impaired. Insight limited. Judgment limited. Fund of knowledge below average. PROGNOSIS: Prognosis for this patient is guarded given advancing age, dementia and now discovered exacerbated peripheral vascular disease. It should be noted as well that the patient is waiting for memory care placement, is otherwise stable from a psychiatric standpoint and not currently meeting re-admission criteria at the [facility]. I will be available for consultation on the Medical Unit if this is desired by the Hospitalist Service. ��������������������������������������������� ���������������������������������������� By: ��������������������������������������������� 2254 0203 Adams Soares DO /nt
[2018-05-27 17:21] VITALS: BP 129/51
[2018-05-27 18:07] LABS: URINE BILIRUBIN NEGATIVE (Negative); URINE BLOOD NEGATIVE (Negative); URINE CLARITY CLEAR; URINE COLOR YELLOW; URINE GLUCOSE-RANDOM* NEGATIVE (Negative); URINE KETONES 1+ (Negative); URINE LEUKOCYTES-REFLEX NEGATIVE (Negative); URINE NITRITE-REFLEX NEGATIVE (Negative); URINE PROTEIN (DIPSTICK) NEGATIVE (Negative); URINE SPECIFIC GRAVITY >= 1.030 (1.005-1.035); URINE UROBILINOGEN 0.2 E.U./dl (0.2-1.0)
[2018-05-27 18:38] LABS: MUCUS 0-3 Light strn/LPF (None Seen); SQUAMOUS 0-3 Few /LPF (0-3)
[2018-05-27 18:39] LABS: BACTERIA None Seen /HPF (None Seen); CASTS None Seen /LPF (None Seen); CRYSTALS None Seen /LPF (None Seen); URINE RBC None Seen /HPF (0-2); URINE WBC 0-5 Rare /HPF (0-5)
[2018-05-27 18:41] LABS: AMP/METHAMP Negative (Negative); BARBITURATES Negative (Negative); BENZODIAZEPINES Negative (Negative); COCAINE Negative (Negative); METHADONE Negative (Negative); OPIATES POSITIVE (Negative); PCP Negative (Negative)
[2018-05-27 19:52] LABS: ABSOLUTE NEUTROPHILS 5.9 thou/uL (1.4-8.2); BASOPHILS 0.5 % (0.0-2.0); EOSINOPHILS 0.6 % (0.0-3.0); HEMATOCRIT 36.9 % (37.0-47.0); HEMOGLOBIN 12.7 gm/dL (12.0-15.0); LYMPHOCYTES 21.4 % (24.0-44.0); MCH 32.1 pg (26.0-34.0); MCHC 34.4 g/dL (28.0-37.0); MCV 93.3 fL (80.0-100.0); MONOCYTES 7.3 % (1.0-8.0); PLATELET COUNT 211 thou/uL (150-400); POLYS 70.2 % (36.0-66.0); RBC 3.95 mil/uL (4.20-5.00); RDW 12.9 % (10.5-14.5); WBC 8.5 thou/uL (4.0-11.0)
[2018-05-27 20:07] LABS: CALCIUM 9.6 mg/dL (8.5-10.1); CREATININE 0.7 mg/dL (0.6-1.0)
--- NOTE | 2018-05-27 21:44 | NUR ---
Anna Ngo, daughter contacted at [phone] to let her know her mother is here. Anna daughter states, patient does not have DPOA.
[2018-05-27 21:45] VITALS: BP 156/76
[2018-05-27 23:00] VITALS: BP 160/82
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
--- NOTE | 2018-05-28 11:48 | NUR ---
ASSUMED PATIENT CARE AT 0700. PATIENT UP IN D.R., DID NOT SLEEP AT ALL LAST NIGHT. NO A.M. MEDICATIONS AT 0900; N.P., SAVANA COPELAND PRESENTLY HERE TO EVALUATE PATIENTS AND ORDER NEW MEDICATIONS. LATE TRAY, PATIENT REFUSED. CONTINUE TO MONITOR.
--- NOTE | 2018-05-28 12:52 | NUR ---
PATIENT SITTING IN W/C IN DR, STOOD UP WITHOUT HELP AND FELL OUT OF W/C ON HER KNEES. PATIENT IS NOW SITTING BESIDE THIS NURSE AT TABLE, AFTER TURNING HER W/C AROUND FACING TOWARDS THE TABLE. WILL MONITOR PATIENT MORE CLOSELY.
[2018-05-28 15:43] VITALS: BP 149/76
[2018-05-28 17:29] VITALS: BP 139/64
--- NOTE | 2018-05-28 17:56 | NUR ---
PATIENT EXPERIENCED A FALL THIS A.M. AT 10:15. UNWITTNESSED BY STAFF. FELLOW PATIENT PRESENT IN THE D.R. WHERE PATIENT WAS DID NOTICE THAT THE PATIENT HAD FALLEN AND ALERTED STAFF, WHO WERE CLOSE BY. PATIENT WAS CONFUSED PRIOR TO FALL, ALSO EXPERIENCING HALLUCINATIONS, EVIDENCED BY SEEING HER MEDICATION ON THE FLOOR AND TRYING TO PICK IT UP. PATIENT FELL ASLEEP IN HER W/C SHORTLY AFTER FALL, ASSISTED TO HER ROOM BY STAFF.
[2018-05-28 20:25] VITALS: BP 105/42
--- NOTE | 2018-05-28 22:50 | NUR ---
ASSUMED CARE OF THE PT AT 1914 PM. THE PT WAS IN BED WHEN THIS FOUNDRY EQUIPMENT MECHANIC CAME ON DUTY. ALERT ET ORIENTED X 2. MAKES NEEDS KNOWN. THE PT IS LEGALLY BLIND, DENIES ANXIETY, DEPRESSION, A/V HALLUNICATIONS. HEART RATE REGULAR. LUNG RESP., EVEN, AND UNLABORED. DENIES PAIN AT THIS TIME. REMAINS ON 12 MINUTE CHECKS FOR HER SAFETY.
--- NOTE | 2018-05-29 04:45 | NUR ---
THE PT HAS BEEN UP TO THE BATHROOM X 2 THIS SHIFT. C/0 PAIN TO HER BACK, MEDICATED WITH ONE PAIN PILL, WHICH SHE CAN HAVE EVERY 6 HOURS. WALKS VERY SLOWLY WITH A SLOW STEADY GAIT.
--- NOTE | 2018-05-29 06:19 | NUR ---
THE PT SLEPT 8.6 HOURS LAST NIGHT.
[2018-05-29 07:25] VITALS: BP 134/62
[2018-05-29 09:48] VITALS: BP 134/62
--- NOTE | 2018-05-29 12:00 | NUR ---
Spoke with a Dr. Mckinney's nurse, Umm Silver - [phone] (release in the chart) regarding patient's admission. Umm was both confused/concerned about the hospitalization as apparently Hector was just discharged from a hospital last . Dr. Mckinney's office was informed that an "Michelle" had called their office to tell them that Hector was here. I told her that we do not have an Michelle that works on our unit. She had no other questions. Wanted us to know that a "friend" sent the office a letter about a concern that the patient is drinking heavily (again). Thanked Umm for the information. HEM
[2018-05-29 19:49] VITALS: BP 115/51
[2018-05-29 19:52] VITALS: BP 115/51
[2018-05-30 00:40] VITALS: BP 115/51
--- NOTE | 2018-05-30 03:02 | NUR ---
PT OUT IN DAY AREA AT [facility] OF SHIFT. CALM AND COOPERATIVE. EXPRESSING NEED FOR PAIN MED FOR CHRONIC PAIN. TYLENOL PROVIDED WITH MODEST RESULTS. EYE SIGHT "BLURRY". RETINAL PIGMENTOSA. ESCORTED TO BED AT 0. USED BS COMMODE WITH GOOD RESULTS. TOOK HS MEDS INCLUDING HYDROCODE FOR PAIN. CONTINUES TO SLEEP UP TO THIS POINT.
--- NOTE | 2018-05-30 07:57 | NUR ---
0720: Report rec. from noc shift, care assumed. Assisted to w/c from bed, assistance x1, alert oriented to name and place, cooperative and calm with staff. Requested pain med for back pain, 1 tab of Hydrocodone po given, takes pills whole without difficulty. Reports no BM since 05/27, pt given Prune juice with Miralax and will f/u with Dr about additional laxative/stool softner.
[2018-05-30 09:22] VITALS: BP 100/60
[2018-05-30 10:35] VITALS: BP 100/60
[2018-05-30 19:56] VITALS: BP 154/76
--- NOTE | 2018-05-30 23:38 | NUR ---
ASSUMED CARE OF THE PT AT 191 PM. THE PT WAS SITTING IN THE DAYROOM WHEN THIS CONTRACTS PARALEGAL CAME ON DUTY. ALERT ET ORIENTED X 2, PERSON, PLACE. THE PT WAS ASSISTED TO HER ROOM AND SHE WENT TO BED. DENIES PAIN, ANXIETY, DEPRESSION, SI/HI/A/V HALLUNICATIONS. REMAINS ON 12 MINUTE CHECKS FOR THE PT'S SAFETY.
--- NOTE | 2018-05-31 05:38 | NUR ---
THE PT HAD X3 LOOSE BMS. DENIES PAIN AT THIS TIME. RESP., EVEN, AND UNLABORED. REMAINS ON 12 MINUTE CHECKS FOR HER SAFETY.
[2018-05-31 11:55] VITALS: BP 154/76
--- NOTE | 2018-05-31 15:19 | NUR ---
ASSUMED CARE AT 0715 TODAY. PT. IN W/C, BUT REQUESTING WALKER AND ASSISTANCE WITH THE WALKER. PT WORKED WITH HER TODAY AMBULATING WITH THE WALKER. SHE CONTINUES TO REQUIRE ASSISTANCE DUE TO HER BLINDNESS. SHE TOOK HER MEDICATIONS WITHOUT PROBLEMS NOTED. SHE DENIES SI/HI. SHE CONTINUES TO STATE SHE HAS SOME AVH. HAS ATTENDED GROUPS TODAY AND ATE MEALS ON THE FLOOR.
[2018-05-31 15:48] VITALS: BP 111/56
[2018-05-31 19:23] VITALS: BP 141/67
--- NOTE | 2018-06-01 05:56 | NUR ---
LOUD AND YELLING AT START OF THE SHIFT, ABLE TO BE REDIRECTED, ALERT/ORIENTED TO NAME, UP WITH ASSIST DUE TO LEGALLY BLIND, NEEDED TO BE CUED WITH AMBULATION, TOOK MEDS WITH NO ISSUES, COOPERATIVE, CONTINENT, VOIDED IN THE TOILET, USING PULL UPS, NO BM NOTED, MONITORED.
[2018-06-01 08:00] VITALS: BP 124/50
[2018-06-01 09:03] VITALS: BP 124/50
--- NOTE | 2018-06-01 16:53 | NUR ---
SW called in spoke with pt daughter Anna concerning being her mother DPOA. Pt stated that she does not want to be the guardian or DPOA. She stated that her mother is very difficulty to work with throughout the years. Pt stated that she is going ot town for 4 weeks, and will not be able to assist with her care. SW asked if she could have her sister Joy Shine number to see if she could assist with her care. Anna stated that she will not provide that information due to her sister is not communicating with there mother. BENNY stated that she will speak with Dr. Snowden in return the phone call concerning pt discharge, and DPOA.
--- NOTE | 2018-06-01 17:31 | NUR ---
ASSUMED PT CARE REPORT RECEIVED FROM NURSE. PT IS AOX3 FORGETFUL. DENIES SUICIDAL IDEATION. ON R. VSS. COMPLAINS OF PAIN IN HIP AND LOWER BACK. TYLENOL THEN HYDROCODONE GIVEN FOR THE PAIN. PT GETS PARTIAL RELIEF FROM MEDICINE, BUT PAIN GETS BACK INTERMIDIENTLY. PT ABLE TO WALK IN HALLWAY WITH WALKER AND STAFF ASSISTANCE. PT IS VERY ACTIVE. PARTICIPATES IN GROUP AND MAINTAIN HER CALM ATTITUDE. WILL CONTINUE TO MONITOR PT
[2018-06-01 20:00] VITALS: BP 116/63
[2018-06-01 20:19] VITALS: BP 116/63
--- NOTE | 2018-06-02 00:19 | NUR ---
PATIENTS CARES WERE ASSUMED AT SHIFT CHANGE. PATIENT WAS ASSESSSED AND MEDS WERE PASSED. HOURLY ROUNDING WAS DONE AND PATIENT APPERED TO BE SLEEPING. THE BED IS IN A LOW AND LOCKED POSITION. THE BED ALARM IS ON.
--- NOTE | 2018-06-02 15:21 | NUR ---
CLINTON met with pt daughter Joy concerning her healthcare. Clinton explained that at this time her mother will need a LTC memory care unit. CLINTON provided a list of facilities that will assist with her care. CLINTON assisted the family with completing the DPOA paperwork. CLINTON will follow-up with pt family on June 05, 2018.
--- NOTE | 2018-06-02 17:18 | NUR ---
PATIENT HAS BEEN UP MANUVERING AROUND WITH WALKER. NEEDS ASSISTANCE WHEN AMBULATING. VERY SLOW AND STEERS TOWARD LEFT SIDE WHEN AMBULATING WITH WALKER. MENTIONED ENJOYED LIVING BY [facility] AND STATED WANTED TO RETURN THERE. PATIENT RESPONSIVE TO QUESTIONS ADDRESSED TO HER. DENIED ANY THOUGHTS OF S/I - MANAGES TO MANUVER WITH GUIDANCE. MAKES NEEDS KNOWN - SUFFERS FROM CHRONIC BACK PAIN AND PRN PAIN MEDICATIONS ADMINISTERED SEVERAL TIMES. APPETITE GOOD - MEDICATION COMPLIANT. GIVEN MIRALAX TO AID WITH BOWEL MOVEMENT. MET WITH FAMILY EARLIER IN THE DAY.
[2018-06-02 21:06] VITALS: BP 104/48
--- NOTE | 2018-06-03 02:27 | NUR ---
Tearful at hs stating she is "afraid". "I was tolf i had the beginning of dementia today and i know that can lead to alzheimers-i am 82 years old and i just didn;t think that this is how it would end" Did respond to support,reassurance and education from nursing staff-states she was "happy and surprised" that ex- was willing to assist in future care decisions and trusts him in that role. Ruminative thoughts re moving from current apartment and obtaining her clothing and belongings-does state her kasey is helping her with current stressors and is able to calm self by praying-requested and received norco 5/325 at approx 2345 for c/o back pain-sleeping within 15 minutes of administration. Denies a/v hallucinations-si/sh/hi. Conversation is goal directed-responses appropriate. using roller walker for ambulation and SBA X1 R/T severe visual defecit.l
[2018-06-03 07:30] VITALS: BP 133/59
--- NOTE | 2018-06-03 09:54 | NUR ---
0730: Report rec. from noc shift, care assumed. Awake, oriented to name and place, ambulatory with walker and staff assist x1, gait slow/steady. Feeds self for meal with guidance and direction due to blindness, takes meds w/o difficulty. 0930: Denies back pain @ this time. Mood is pleasant but flat.
[2018-06-03 19:36] VITALS: BP 109/60
[2018-06-03 21:36] VITALS: BP 109/60
--- NOTE | 2018-06-04 04:09 | NUR ---
PT OUT WITH PEERS IN DAY AREA EARLY IN SHIFT. EVENING SNACK, AND TOOK HS MEDS W/O PROBLEM. ASSISTED TO BR XI OVERNIGHT. SLEPT WELL THROUGH THE NIGHT. PLEASANT AND COOPERATIVE. TALKED BRIEFLY ABOUT EX- HELPING HER OUT.
--- NOTE | 2018-06-04 10:57 | NUR ---
ASSUMED CARE OF PATIENT AT 0700. PT ATE BREAKFAST IN DAYROOM AT TABLE WTIH PEERS. PT USES WALKER TO AMBULATE AND HAS A SLOW STEADY GAIT, REQUIRES VERBAL DIRECTION TO HELP NAVIGATE TO AND FROM ROOM DUE TO VISION ISSUES. PT ORIENTED TO SELF, DAY, & PLACE. REFUSED EKG, & MIRALAX. COMPLIED WITH OTHER MEDICATIONS W/O DIFFICULTY. COMPLETED AM CARE W/SHOWER AND ASSIST OF 2 IN SHOWER CHAIR. PT ASSISTED W/AM CARE, PLEASANT AND NO AGGRESSIVE. PT SHARED HER EX- IS GOING TO BE HER DPOA AND THAT THEY WERE FOR 38 YEARS WHEN "HE WOKE UP ONE MORNING & JUST SAID HE DIDN'T WANT TO BE ANYMORE AND LEFT ME." "HE IS A GOOD JOSELYN THOUGH AND WE RAISED OUR KIDS TOGETHER." CONTINUE TO MONITOR THROUGHOUT SHIFT.
[2018-06-04 11:17] VITALS: BP 103/49
--- NOTE | 2018-06-04 15:30 | NUR ---
PT RESTING IN QUIETLY IN BED AT THIS TIME AFTER EATING LUNCH IN DAYROOM AND TOILETING. RECEIVED PRN HYDROCODONE FOR COMPLAINTS BACK AND R GREAT TOE PAIN. MS. ROWE HOME BASED ASSISTANT ON UNIT AND ASSESSED PT R GREAT TOE. NO OPEN SORES PT REPORTS TENDERNESS AROUND NAIL (NAIL THICK & OVERGROWN) - ? INGROWN TOENAIL. PODIATRY CONSULT ORDERED & US (ELI) CALLED PRODUCTION ASSOCIATE OFFICE AND LEFT MESSAGE RE: CONSULT. PT VOICED ANXIETY AND CONCERN ABOUT HAVING DEMENTIA AND ALSO BEING "LEGALLY" BLIND - "MY SISTER HAD DEMENTIA, I KNOW WHAT IS IN STORE FOR ME AND IT IS NOT GOOD." REASSURANCE PROVIDED THAT PT WOULD NOT BE RETURNING HOME OR LIVING ALONE AND WOULD HAVE SOMEONE TO ASSIST HER. "IT IS NOT HOW I WANTED TO LIVE."
--- NOTE | 2018-06-04 17:00 | NUR ---
PT UP IN CHAIR IN DAYROOM - SITTING QUIETLY IN FRONT OF TV - DOZING OFF AND ON. NO ACUTE DISTRESS NOTED. CONTINUE TO MONITOR THROUGHOUT SHIFT.
--- NOTE | 2018-06-04 18:45 | NUR ---
PT ASSISTED X1 TO TOILET. SITTING UP IN DAYROOM W/PEERS AT PRESENT. NO DISTRESS NOTED.
[2018-06-04 19:33] VITALS: BP 130/62
--- NOTE | 2018-06-04 21:25 | NUR ---
Pt sitting in day room listening to TV. She sits in chair in front of couch. Pt did have snack, compliant with meds. Requested prn pain med prior to sleep and requested to goto bed at 2100, provided. Gait remains steady slow with walker, sba.
--- NOTE | 2018-06-05 07:30 | NUR ---
PT UP WALKING WITH WALKER THIS AM. PT NEEDS ASSISTANCE WITH NAVIGATION WHEN WALKING. PT ALSO NEEDS ASSISTANCE WITH FOOD SET UP. PT NEEDED ASSISTANCE WITH SITTING UP IN BED THIS AM. PT STATED PAIN TO BACK IS 7 ON 1-10 SCALE. PT ALSO STATED THAT HER RT BIG TOE IS SORE TO TOUCH. PT LUNGS CLEAR. NO EDEMA NOTED TO LOWER EXT.
[2018-06-05 07:45] VITALS: BP 115/49
[2018-06-05 08:00] VITALS: BP 115/49
--- NOTE | 2018-06-05 08:00 | NUR ---
MEAT BLENDER HERE TO ASSESS AND TRIM RT GREAT BIG TOE NAIL.
[2018-06-05 09:00] VITALS: BP 115/49
--- NOTE | 2018-06-05 12:57 | NUR ---
Assess due to indication of low ana m score. Interview with pt during lunch, appetite is good but requires finger foods due to blindness. Strong dislike of Ensure-will discontinue. Obtained detailed list of finger foods pt will eat. Wt down 9 lb from 11/1017/6% which is not significant. Low nutritionr risk.
[2018-06-05 14:01] VITALS: BP 115/49
--- NOTE | 2018-06-05 18:25 | NUR ---
PT HAD A GOOD DAY. ATTENDED GROUP AND ASSISTED BY STAFF TO BATHROOM. PT STATED SHE GOT FINGER FOODS FOR LUNCH AND DINNER, WHICH MADE IT EASIER TO EAT.
--- NOTE | 2018-06-05 18:45 | NUR ---
ADM HYDROCODONE 5MG PO FOR PAIN TO BACK OF 7 ON 1-10 SCALE. PT STATED SHE HAS NOT HAD A BM FOR 2 DAYS. PT STATED MIRALAX DOESN'T HELP. SHE STATED THAT MAG CITRATE WORKS AND SUPPOSITORY WORKS.
[2018-06-05 20:04] VITALS: BP 121/61
--- NOTE | 2018-06-05 22:40 | NUR ---
ASSUMED CARE OF THE PT AT 1915PM. THE PT WAS WATCHING TV, REQUESTING PAIN MEDICATION, WHICH WAS GIVEN DURING THE DAY SHIFT. ALERT TO PERSON AND PLACE. DENIES ANXIETY AND DEPRESSION. DENIES SI AND HI CURRENTLY. REMAINS ON 12 MINUTE CHECKS. FOR HER SAFETY.
--- NOTE | 2018-06-06 06:27 | NUR ---
THE PT SLEPT 7 HOURS LAST NIGHT.
[2018-06-06 09:42] VITALS: BP 120/58
--- NOTE | 2018-06-06 10:20 | HC ---
[facility] [place] [address] CONSULTATION Name: VALERI MARINELLI Room #: 520B-B ADM IN M.R.#: [id number] Admission: 05/27/18 ������������������ Attend Phys: Adams Soares DO Discharge: ������������������ Date of : 39 Report #: [id number] THIS REPORT FOR: //name// CC: Adams Mckinney HISTORY OF PRESENT ILLNESS: This is an 82-year-old female who was admitted recently with a diagnosis of dementia. Her primary complaint for podiatry today is right great toenail pain. She states it has been bothering her more over the last couple of days and she feels like the nail is digging into the skin and it is thick and ingrown. She states it hurts with any pressure and sometimes without. PHYSICAL EXAMINATION: On physical exam, lower extremity specific, +1/4 DP pulse. Nonpalpable posterior tibial pulse. CFT brisk to all toes. Light touch sensation intact to all pedal dermatomes. There is hypersensitivity along the distal aspect of the right hallux along the nail bed and borders, but there are no acute signs of infection. There is no redness, drainage, or areas of any fluctuance or abscess. Debrided the mycotic part and did a slant back at the distal nail borders. There are no breaks in the skin or signs of infection. Muscle strength +5/5 to all pedal dermatomes. Overall, no obvious gross pedal deformities, except second hammertoes that abut and slightly overlap bilateral hallux. ASSESSMENT: This is an 82-year-old female being seen for thickened fungal, curved right big toenail. PLAN: Following alcohol prep, sharp debridement of all toenails, especially right hallux with a slant back procedure performed at distal borders. Most relief obtained, but she is still complaining of some discomfort along the toe towards the IPJ. Therefore, to completely rule out any other causes, I would recommend obtaining an arterial duplex to confirm her blood flow is adequate and not an underlying issue. We will confirm that these studies are within normal limits and that the debridement of nail performed today provides relief for her. Please contact me if her discomfort to the right hallux continues. Thank you for this consult. Valeria Dawkins DPM ��������������������������������������������� <ELECTRONICALLY SIGNED> ���������������������������������������� By: Valeria Dawkins DPM ��������������������������������������������� 06/06/18 1020 0743 0005 Valeria Dawkins DPM /nt
--- NOTE | 2018-06-06 16:56 | NUR ---
PATIENT IS LAERT, UP AND OUT ON THE UNIT MOST OF THE DAY, PARTICIPATED IN GROUP ACTIVITIES. PATIENT HAD MAGNASIUM CITRATE THIS MORNING WITH POSITIVE RESULT. PATIENT HAS HAD LARGE FORMED BOWEL MOVEMENT X 4. SHE REFUSES BISACODYL SUPPOSITORY " NO NO I DON'T WANT THAT I HAVE HAD TOO MUCH BM TODAY". PATIENT IS EATING MEALS AND DRINKING FLUID FAIRLY WELL. PATIENT DENIES SUICIDAL AND HOMOCIDAL IDEATION, NO SIGN OF ACUTE DISTRESS NOTED, WILL MONITOR FOR SAFETY.
[2018-06-06 20:28] VITALS: BP 109/65
--- NOTE | 2018-06-06 22:51 | NUR ---
ASSUMED CARE OF THE PT AT 1914 PM. ALERT TO PERSON AND PLACE. WALKS WITH A WALKER AND THE ASSISTANCE OF ONE. THE PT RECEIVED MAG CITRATE EARLIER TODAY AND SHE HAS HAD 6 BM'S. DENIES ANXIETY AND DEPRESSION. DENIES SI AND HI. REMIANS ON 12 MINUTE CHECKS FOR HER SAFETY.
--- NOTE | 2018-06-07 05:34 | NUR ---
THE PT HAS BEEN UP AND DOWN ALL NIGHT GOING TO THE BATHROOM THIS SHIFT. NO PAIN NOTED AT THIS TIME. REMAINS ON 12 MINUTE CHECKS FOR HER SAFETY.
--- NOTE | 2018-06-07 06:37 | NUR ---
THE PT SLEPT 4.4 HOURS LAST NIGHT.
--- NOTE | 2018-06-07 07:05 | NUR ---
ADM HYDROCODNE 5MG PO FOR PAIN TO LOWER BACK OF 5 ON 1-10 SCALE.
[2018-06-07 07:30] VITALS: BP 113/46
--- NOTE | 2018-06-07 09:30 | NUR ---
PT UP THIS AM WITH ASSISTANCE WITH WALKER. PT 90% BLIND, PERIPHERAL VISION. PT LIKES TO SIT IN FRONT OF TV TO HEAR. PT STATED SHE SLEPT OK, PT STATED SHE HAD NO CONCERNS OR ANYTHING TO ACCOMPLISH.
[2018-06-07 10:00] VITALS: BP 113/46
--- NOTE | 2018-06-07 17:11 | NUR ---
ADM NORCO 5MG PO FOR PAIN TO LOWER BACK.
[2018-06-07 19:34] VITALS: BP 128/56
[2018-06-07 23:13] VITALS: BP 128/56
--- NOTE | 2018-06-08 04:02 | NUR ---
DOT OUT IN DAY AREA AT BEGINNING OF EVENING. ASKED FOR HER MEDS TO BE GIVEN AT 2030, AND THEN BE ASSISTED TO BED. QUIET AND COOPERATIVE. TOOK MEDS W/O PROBLEM. SLEPT UNTIL MIDNIGHT, THEN ASSISTED TO BR.ABLE TO URINATE WW/O PROBLEM. SLEPT UNTIL 0200, AND WAS AGAIN ASSISTED TO BR, AND PAIN MED PROVIDED ON HER REQUEST. SLEPT WELL OTHERWISE.
--- NOTE | 2018-06-08 10:30 | NUR ---
[id number]: Report from noc shift, care assumed. Resting in bed with eyes closed, awakens readily to verbal stimuli. [place] 1 tab po given @ 0900 for back pain, see MAR, oriented to name and place, forgetfull at times. New telephone order from Valeria Dawkins for RLE arterial US to r/o DVT and to recent onset of discomfort to RLE. Order verfified with cardiology. Takes meds whole w/o difficulty. Calm mood, 3-4 yelling out episodes per hour, redirects easily. 1000: RLE arterial US completed @ bedside.
[2018-06-08] MEDS ORDERED: ONDANSETRON HCL4 M2 PO (14:30)
[2018-06-08] MEDS ORDERED: MIRALAX17 GM PO (14:30)
[2018-06-08] MEDS ORDERED: RISPERIDONE 00.25 M1 PO (14:30)
[2018-06-08] MEDS ORDERED: COLACE 100 MG100 MG PO (14:30)
[2018-06-08] MEDS ORDERED: PEPCID20 MG PO (14:31)
== END 2018-06-08 16:01 | disposition short-term general hospital (02) | DRG 881 ==
LOC: ER 17:21 → SBH 20:23 → EROBS 20:23 → SBH 20:23
PROVIDERS: Student in an Organized Health Care Education/Training Program; ADMIT Psychiatry & Neurology Psychiatry
DX: F32.9 Major depressive disorder, single episode, unspecified (principal); F01.51 Vascular dementia, unspecified severity, with behavioral disturbance; F29 Unspecified psychosis not due to a substance or known physiological condition; G47.00 Insomnia, unspecified; E78.00 Pure hypercholesterolemia, unspecified; H54.8 Legal blindness, as defined in USA; G89.29 Other chronic pain; M54.9 Dorsalgia, unspecified; H35.52 Pigmentary retinal dystrophy; K59.00 Constipation, unspecified; E78.5 Hyperlipidemia, unspecified; I73.9 Peripheral vascular disease, unspecified; M54.5 Low back pain; Z79.891 Long term (current) use of opiate analgesic; Z90.710 Acquired absence of both cervix and uterus; Z98.42 Cataract extraction status, left eye; Z98.41 Cataract extraction status, right eye; Z88.6 Allergy status to analgesic agent; Z88.8 Allergy status to other drugs, medicaments and biological substances; Z79.899 Other long term (current) drug therapy
CPT/HCPCS: 10880

== ENCOUNTER 2018-06-08 15:49 | Inpatient (IN) | payer OTHER ==
[~2018-06-08] VITALS: Ht 152.4 cm; Wt 61.7 kg
[~2018-06-08 15:49] MED LIST changes: +COLACE 100 MG100 MG PO; +ONDANSETRON HCL4 M2 PO; +RISPERIDONE 00.25 M1 PO
[2018-06-08 16:52] VITALS: BP 127/54
[2018-06-08 21:00] VITALS: BP 123/39
[2018-06-09] VITALS (9 sets, daily range): BP systolic 112–142; BP diastolic 44–62
[2018-06-09 04:54] LABS: HEMATOCRIT 38.5 % (37.0-47.0); MCH 32.1 pg (26.0-34.0); MCHC 33.9 g/dL (28.0-37.0); MCV 94.7 fL (80.0-100.0); RBC 4.07 mil/uL (4.20-5.00); RDW 12.6 % (10.5-14.5); WBC 7.8 thou/uL (4.0-11.0)
[2018-06-09 05:09] LABS: CALCIUM 9.2 mg/dL (8.5-10.1); CREATININE 0.8 mg/dL (0.6-1.0); POTASSIUM 3.9 mmol/L (3.5-5.1)
--- NOTE | 2018-06-09 05:14 | NUR ---
ASSUMED CARE AT 1900, ASSESSMENT COMPLETED. PT DENIES SOB OR NAUSEA. C/O PAIN 8/10 IN RIGHT GREAT TOE, WELL MODERATE PAIN IN LEFT HEEL. NO WOUNDS, SORES, OR SKIN BREAKDOWN NOTED. PT HAS 1+ PULSES IN BILAT FEET; BLE WARM TO TOUCH AND PINK IN COLOR. GIVEN NORCO ONCE OVERNIGHT. FALL PRECAUTIONS IN PLACE, REQUIRES FREQ REMINDER OF HOW TO USE CALL LIGHT. THIS AM, BED ALARM WENT OFF, PT HAD ROLLED TO SIDE OF BED, STATED SHE HAD CALLED AND NO ONE ANSWERED, BUT CALL LIGHT WAS NOT GOING OFF; PT WAS INCONT OF URINE, CHANGED LINENS AND GOWN, COMPLETED PERICARE. HAS BEEN NPO SINCE MIDNIGHT FOR PLANNED ANGIOGRAM AND POSSIBLE STENT PLACEMENT TODAY. NO OTHER CONCERNS, WILL CONTINUE TO MONITOR.
--- NOTE | 2018-06-09 14:04 | NUR ---
INITIAL ASSESSMENT: Pt evaluated for d/c planning needs. Reviewed chart and spoke with nurse and pt's DPOA ex-spouse Gene ([phone]; cell [phone]). Pt was transferred to from inpatient psych. Pt has history of dementia and was living alone in independent apartment at [facility] prior to admission to . According to documentation, family was looking at memory care placement for pt. Ex-spouse said that family has chosen in [place]. He said that Ana reportedly faxed information to facility. Called disability coordinator at [facility] and left message to return call. Will await return call re: acceptance and bed availability. [phone]
--- NOTE | 2018-06-09 18:04 | NUR ---
ASSUMED CARE OF PT AT 0700. ASSESSMENT CHARTED. ALERT AND ORIENTED TO PERSON, PLACE, AND SITUATION. HX DEMENTIA, LEGALLY BLIND, AND FORGETFUL AT TIMES. PLAN FOR IR ARTERIOGRAM TODAY. MAINTAINING NPO EXCEPT MEDS WITH SIPS OF WATER. PT LEFT FOR PROCEDURE AT 16:45. C/O CHRONIC BACK PAIN AND ACUTE TOE/HEEL PAIN, PAIN MEDS GIVEN ORDERED. SKIN INTACT. FALL PRECAUTIONS IN PLACE. UP TO BEDSIDE COMMODE. WILL WAIT FOR PT RETURN.
--- NOTE | 2018-06-10 01:21 | NUR ---
ASSUMED PT CARE 0. PT ALERT AND ORIENTED. REASSSESSMENT COMPLETE. VSS. PT DENIES N/V, REPORTS BACK PAIN, SEE EMAR. PT DISCONTINUED IV. CAN BE IMPULSIVE. FREQUENT ROUNDING. NO COMPLICATIONS FOLLOWING PROCEDURE- DRESSING C/D/I, SOFT AT SITE. NEUROCHECKS GOOD. PT CALL LIGHT WITHIN REACH. WILL CONTINUE POC UNTIL EOS.
[2018-06-10 05:54] VITALS: BP 122/50
[2018-06-10 08:27] VITALS: BP 112/51
[2018-06-10 16:04] VITALS: BP 111/52
--- NOTE | 2018-06-10 17:00 | NUR ---
Assessment completed.vss.Pt in bed alert and oriented to self but sometimes restless and agitated.Pt in bed for all meals.Fair appetite.Dr Ugarte here,order noted.Chair and bed alarm in use for safety.Consult called to Dr Barbosa and message left.Pt up in chair at present calm and relax.Will continue to monitor.
[2018-06-10 19:30] VITALS: BP 129/64
--- NOTE | 2018-06-11 03:23 | NUR ---
ASSUMED CARE OF PATIENT AT 1900. VSS. ASSESSMENT COMPLETED AT 2003 AND IS DOCUMENTED. PRN NORCO GIVEN FOR C/O LOWER BACK PAIN WITH DESIRED EFFECT ACHIEVED. LEFT GROIN DRSG C/D/I. PT ALERT AND ORIENTED TO PERSON AND SITUATION ONLY. UP WITH 1 ASSIST TO BSC. PT CURRENTLY SLEEPING SOUNDLY IN BED IN NO ACUTE DISTRESS. BED LOCKED AND IN LOWEST POSITION. BED ALARM ON. CALL LIGHT WITHIN REACH. WCTM.
--- NOTE | 2018-06-11 04:14 | NUR ---
THIS NURSE AGREES WITH ASSESSMENT AND NOTES BY PAROLE OR PROBATION OFFICER ON THIS PATIENT.
[2018-06-11 08:00] VITALS: BP 122/61
--- NOTE | 2018-06-11 10:21 | NUR ---
ASSUMED CARE OF PT APPROX 0715, A&0X1-2, THIS VACILLATES DEPENDING ON TIME OF DAY. PRESENTS W/WEAK HAND FASHION COORDINATOR, STATES SHE WALKS W/A WALKER YET 'HAVEN'T WALKED IN A A VERY LONG TIME', WILL NOT REACH FOR HER CUP WHEN HAND IS GUIDED TO TABLE SET UP CLOSE TO HER, ASKED THAT I PUT THE PILL CUP UP TO HER LIPS, HAD HER REACH OUT TO GRASP IT AND DO IT HERSELF TO GIVE HER SOME POWER. C/O PAIN IN LOWER BACK, CHRONIC, AND BLE, MANAGED W/ADM OF PO MEDS. BLIND, SHE STATES IN THE LAST 3-4 MONTHS SO EXTRA CARE IS NEEDED TO HOLD OUT ITEMS FOR HER TO GRASP, WILL NOT MOVE HERSELF UP IN BED EVEN WITH ASSISTANCE. VERY WEAK YET STILL ENCOURAGED, GENTLY, TO DO MUCH SHE CAN FOR HERSELF. USES CALL LIGHT FOR NEEDS CONSTANTLY. BED ALARM ENGAGED
[2018-06-11 18:52] VITALS: BP 102/50
--- NOTE | 2018-06-12 04:58 | NUR ---
PATIENT ALERT AND ORIENTED X4 WITH SOME FORGETFULNESS AND CONFUSION. OBEYS ALL COMMANDS. UP TO BSC WITH ASSIST OF ONE/GAIT BELT/WALKER. PATIENT IS BLIND. NEEDS TRAYS SET-UP. C/O PAIN X1. MED GIVEN WITH GOOD RESULTS. SLEPT MOST OF NIGHT.
[2018-06-12 07:09] VITALS: BP 126/61
--- NOTE | 2018-06-12 10:42 | NUR ---
ASSUMED CARE OF PATIENT THIS MORNING. PATIENT IS A&OX4. SHE GETS UP WITH 1 ASSIST AND WALKER TO [facility]. SHE IS LEGALLY BLIND, SO SHE IS SETUP FOR MEALS. HER CALL LIGHT IS PADDED SO SHE KNOWS WHERE THE NURSE BUTTON IS LOCATED. SHE TOOK AND TOLERATED HER MORNING MED. SHE RATED HER PAIN 4/10, IT WAS STILL TOO SOON TO GIVE ANYTHING FOR PAIN SINCE THE UPHOLSTERY REPAIRER GAVE HER SOMETHING BEFORE THE NEED OF THE SHIFT. PATIENT HAD OT THIS MORNING AND ALLOWED THE THERAPIST TO GET HER UP FOR BREAKFAST, THE PATIENT WASHED HER FACE, BUT WANTED TO WAIT TO BRUSH HER TEETH. SHE DID NOT EAT MUCH ON HER BREAKFAST TRAY. SHE IS CURRENTLY LYING IN BED WITH CALL LIGHT WITHIN REACH. SHE DOES CALL OUT APPROPRIATELY FOR ASSISTANCE.
--- NOTE | 2018-06-12 11:40 | NUR ---
Received consult to assist with pt returning to H unit. BENNY reviewed chart and spoke with nursing and attending physician. Pt was [facility] to [facility] from and is stable for discharge to post-acute. BENNY spoke with Bing in admissions at [facility] in [place], who states they are not able to accept pt at this time. BENNY left voice message for pt's ex-/DPOA, Gene (cell [phone]) to provide update to discuss alternate options. Awaiting call back at this time. BENNY is following to assist as needed with discharge planning.
[2018-06-12] MEDS ORDERED: ACETAMINOPHEN325 M1 PO (12:07)
--- NOTE | 2018-06-12 15:41 | NUR ---
I AGREE WITH NURSING ASSESSMENT DONE BY KUMAR/YULIA.
--- NOTE | 2018-06-12 16:54 | HC ---
[facility] [place] [address] CONSULTATION Name: VALERI MARINELLI Room #: 220-P ADM IN M.R.#: [id number] Admission: 06/08/18 ������������������ Attend Phys: Jessica Collado Discharge: ������������������ Date of : 37 Report #: [id number] THIS REPORT FOR: //name// CC: Michelle Lira DATE OF SERVICE: 06/11/2018 We were asked by Dr. Francis Ugarte to see the patient. 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 The notes says she was seen by the Vascular Surgery team and transferred to her room, but I have no knowledge or familiarity with this patient. We note that an arteriogram was done on 06/09/2018 and this shows a 50% lesion in the right superficial femoral artery at Kiko's canal that does not appear to be hemodynamically significant visually. MEDICAL PROBLEMS: According to the chart composed of quite a list that includes alcohol abuse, multiple fractures and contusions, hypokalemia and urinary tract infection. ALLERGIES: QUOTED ALLERGIES INCLUDE ALPRAZOLAM, DIAZEPAM, MORPHINE, FLUOXETINE AND ZOLPIDEM. MEDICATIONS: Include risperidone, docusate, polyethylene glycol, ondansetron, famotidine and trazodone. OTHER PAST MEDICAL AND SURGICAL HISTORY: Includes retinitis pigmentosa with blindness. FAMILY HISTORY: Apparently according to the chart, siblings with the same genetic vision disorder. SOCIAL HISTORY: Tobacco use, the patient has never been a smoker. Alcohol use, yes. REVIEW OF SYSTEMS: According to the chart, CONSTITUTIONAL: Positive for weakness. HEENT: Denies nasal congestion, headache or dizziness. EYES: As mentioned decreased vision related to retinitis pigmentosa. RESPIRATORY: Denies cough and shortness of breath. CARDIOVASCULAR: Denies chest pain or palpitations. [facility] [address] [place] [address] CONSULTATION Name: ISISVALERI JUAN Room #: 220-[facility] IN M.R.#: [id number] Admission: 06/08/18 ������������������ Attend Phys: Jessica Collado Discharge: ������������������ Date of : 39 Report #: [id number] GASTROINTESTINAL: Denies vomiting, nausea or anorexia. MUSCULOSKELETAL: Positive for heel pain primarily in the right lower extremity. SKIN: No rash or infection. NEUROLOGIC: No weakness or sensory loss. PSYCHIATRIC: Hard to assess. PHYSICAL EXAMINATION: VITAL SIGNS: Temperature 36.8, pulse rate 66, respiratory rate 18, blood pressure 129/64 and O2 sat 95 on room air. HEENT: No scleral icterus, no arcus, normocephalic. Pupils round. NECK: I hear no carotid bruits and no mass. CHEST: Clear. HEART: Rhythm is regular. No murmur. ABDOMEN: Soft, no mass and no tenderness. SKIN: No rash or infection. NEUROLOGIC: No obvious motor or sensory defect. EXTREMITIES: The patient complains of pain. When I removed her socks, I see no lesions on the feet. Pulses 2+ dorsalis pedis and posterior tibial 2+ on the right. I do not feel them on the left and 2+ popliteal pulse on the right and 1+ on the left. PSYCHIATRIC: Appears to know where she is, why she is here and answers questions appropriately and follows directions. ASSESSMENT AND PLAN: This was quite an aggressive workup for trivial physical finding in my opinion. There were palpable pulses and no skin lesions present on the "abnormal" extremity as such. The patient underwent an arteriogram. I see no reason for further invasive studies. Thank you for the consult. ��������������������������������������������� <ELECTRONICALLY SIGNED> ���������������������������������������� By: Steven Yung MD ��������������������������������������������� 06/12/18 1654 1029 0031 Steven Yung MD /nt
[2018-06-12 20:22] VITALS: BP 124/64
[2018-06-12 20:36] VITALS: BP 134/60
--- NOTE | 2018-06-13 03:43 | NUR ---
Assumed pt. care at 1900. Pt remains legally blind and A&Ox3; swallows meds whole w/o difficulty. Remains cont. B&B. Ambulates to BSC w/ min asst.; gait steady. Pt. has no IV access. Last BM 06/10/18. Remains on fall precautions. Incision to R groin noted; no redness/drainage noted to site. Pt has no c/o pain or discomfort, at this time. No s/s of acute distress noted. Pt. asleep in bed w/ call light/desired belongings within reach. PO fluids encouraged. Will continue to monitor.
[2018-06-13 08:00] VITALS: BP 128/65
--- NOTE | 2018-06-13 10:01 | NUR ---
SW reviewed chart and spoke with attending physician. buyer planner [facility] per pt's ex-spouse/DPOA request. BENNY left voice message for Keisha Gardner at [facility] to follow up on Level 2 paperwork needed for LTC placement. Pt was in the [facility] prior to admission to the acute level. [facility] had submitted paperwork to [facility] for review. SW to clarify information faxed and will continue to complete Level 2 ppwk. Pt's DPOA is out of town until next Tuesday/Tuesday. BENNY is following to assist as needed with discharge planning.
--- NOTE | 2018-06-13 10:09 | NUR ---
Research Physician sent LTC Referrals out to 3 facilities: [facility] fax # [phone] phone # [phone] 3). [facility]. Requested they get back to us if they can accept. DP contacted admissions at facilities to let them know to look for referral. * [facility] has no detention Beds available at this time. DP awaiting to hear back from the other 2 facilities.
--- NOTE | 2018-06-13 10:24 | NUR ---
ASSUMED CARE OF PATIENT THIS MORNING. PATIENT IS A&OX4. SHE GETS UP W/1 ASSIST AND WALKER WHEN AMBULATING. PATIENT COMPLAINED ABOUT LOWER BACK PAIN AND RLE PAIN. A LIDOCAINE PATCH WAS APPLIED TO THE PATIENT'S LOWER LEFT SIDE OF HER BACK. SHE TOLERATED HER MORNING MED. SHE REQUIRES SETUP FOR MEALS AND DIRECTION FOR THE LOCATION OF ITEMS ON HER TRAY. SHE RECEIVED OT THIS MORNING AFTER BREAKFAST. PATIENT IS CURRENTLY SITTING IN RECLINER WITH CALL LIGHT WITHIN REACH. SHE CALLS OUT APPROPRIATELY FOR ASSISTANCE.
--- NOTE | 2018-06-13 15:16 | NUR ---
I have reviewed the documentation by TRIPP GIBBS from 06/13/18 to 06/13/18 and I concur with it. TANIA VENEGAS
[2018-06-13 21:00] VITALS: BP 124/71
[2018-06-13 21:12] VITALS: BP 124/71
--- NOTE | 2018-06-14 03:52 | NUR ---
Assumed pt. care at 1900. Pt remains A&Ox3; swallows meds whole w/o difficulty. Remains cont. B&B; ambulates w/ asst x 1 to BSC; gait steady. Pt remains legally blind. No IV access noted. Remains on fall precautions. Denies pain or discomfort. No s/s of acute distress noted. Pt/ asleep in bed w/ call light/desired belongings within reach. Bed/chair alarm intact. Po fluids encouraged. Will continue to monitor.
--- NOTE | 2018-06-14 08:08 | NUR ---
ASSUMED PATIENT AND CARES AT 0715, PATIENT IN BED ASLEEP INITIALLY, PATIENT WOKE AND REQUESTED TO USE BATHROOM AND WASH FACE, PATIENT ASSIST X1 TO BSC STAND AND PIVOT, PATIENT THEN ASSISTED X1 WITH WALKER TO BATHROOM, NURSE SET UP TOOTHBRUSH AND WASHCLOTH, PATIENT STOOD AT SINK AND COMPLETED TASKS, NURSE ASSISTED PATIENT BACK TO BED, NO IV ACCESS, PATIENT BLIND, PATIENT TENDS TO MIX UP LEFT FROM HER RIGHT WHEN GIVING DIRECTIONS FOR INTENDED MOVEMENTS, REMAINS A&OX3-4, PAIN MEDS GIVEN PRIOR TO SHIFT CHANGE, PATIENT COMFORTABLE AT THIS TIME, FALL PRECAUTIONS IN PLACE, PERSONAL BELONGINGS AND CALL LIGHT IN REACH, WILL CONTINUE TO MONITOR
[2018-06-14 08:20] VITALS: BP 126/62
--- NOTE | 2018-06-14 11:48 | NUR ---
SW reviewed chart and spoke with nursing and attending physician. Pt is medically stable for discharge to SNF/LTC. SW working on completing Level 2 ppwk to submit to [facility] for review. SW met with pt at bedside. Pt states that she is aware of placement and is hoping that she will be able to have a studio apt. SW explained that she will be going to a nursing facility. Pt unable to understand them at she will be going to a emt intermediate care facility. SW discussed her DPOA, Gene. Pt states that she would want Gene to be her DPOA, and wants him to be kept updated. Pt states that her dtrs and Gene will share responsibilities. [facility] is able to accept pt pending completion and State's approval of Level 2. Pt requesting to be kept updated about discharge plans. BENNY is following to assist as needed with discharge planning.
--- NOTE | 2018-06-14 12:27 | NUR ---
I AGREE WITH NURSING ASSESSMENT DONE BY STACY/YULIA. AND NURSING NOTE.
--- NOTE | 2018-06-14 13:00 | NUR ---
I have reviewed the documentation by TRIPP GIBBS from 06/14/18 to 06/14/18 and I concur with it. TANIA VENEGAS
--- NOTE | 2018-06-14 16:33 | NUR ---
FYI - State called and reiterated that patient does not qualify for a level II. Left VM's with plant operations manager of [facility], CNO and UR staff Anna Torres
[2018-06-14 19:39] VITALS: BP 115/55
[2018-06-14 21:40] VITALS: BP 115/55
--- NOTE | 2018-06-15 06:34 | NUR ---
Assumed pt. care at 1900. Remains A&Ox3; swallows meds whole w/o difficulty. Remains cont. B&B. Ambulates w/ asst x 1 and walker; gait steady. Remains legally blind.�No IV access noted. Suppository given, as ordered w/ positive results; Pt. passed large, soft stool w/o difficulty. Remains on fall precautions. Denies pain or discomfort. No s/s of acute distress noted. Pt. in bed asleep w/ call light/desired belongings within reach. PO fluids encouraged. Will continue to monitor.
[2018-06-15 08:10] VITALS: BP 116/59
--- NOTE | 2018-06-15 08:14 | NUR ---
ASSUMED PATIENT AND CARES AT 0715, PATIENT INITIALLY IN BED ASLEEP, FALL PRECAUTIONS IN PLACE, NO IV ACCESS, PATIENT A&OX4, PAIN 7/10 RECEIVING PAIN MEDICATION 0551 PRIOR TO SHIFT CHANGE, PATIENT IS BLIND, ASSIST X1 WITH ALL ADLS, CONTINENT OF B&B, NURSE OFF LOADED RIGHT HEEL WITH PILLOW DUE TO CALLUS BEING SORE, PERSONAL BELONGINGS AND CALL LIGHT IN REACH, WILL CONTINUE TO MONITOR
--- NOTE | 2018-06-15 13:36 | NUR ---
BENYN reviewed chart and spoke with nursing and attending physician. BENNY spoke with pt's DPOA, Moses, via phone to provide update. Moses states that pt's dtr, Joy, will be touring [place] [facility] [place] soon. BENNY explained that the State may require the Level 2 ppwk due to pt needing LTC placement with recent inpt psych stay. Level 2 ppwk completed by BENNY and is ready to submit if needed. BENNY is following to assist as needed with discharge planning.
--- NOTE | 2018-06-15 15:48 | NUR ---
I have reviewed the documentation by TRIPP GIBBS from 06/15/18 to 06/15/18 and I concur with it. SMITA JETER
[2018-06-15 18:36] VITALS: BP 114/52
--- NOTE | 2018-06-16 04:42 | NUR ---
ASSUMED CARE OF PATIENT AT 190. VSS. ASSESSMENT COMPLETED AT 2129 AND IS DOCUMENTED. SKIN PROTECTANT APPLIED TO BILAT HEELS. HEELS ELEVATED OFF BED WITH PILLOW. PT UP TO TOILET WITH SBA D/T BLINDNESS. PRN NORCO GIVEN FOR C/O BACK PAIN WITH DESIRED EFFECT ACHIEVED. PT SLEPT SOUNDLY THROUGHOUT THE NIGHT IN NO ACUTE DISTRESS. BED LOCKED AND IN LOWEST POSITION WITH BED ALARM ON. CALL LIGHT WITHIN REACH. [facility].
[2018-06-16 07:27] VITALS: BP 124/49
--- NOTE | 2018-06-16 10:36 | NUR ---
ASSUMED CARE OF PATIENT THIS MORNING. PATIENT IS A&OX4. SHE GETS UP WITH MINIMUM ASSIST AND WALKER WHEN AMBULATING. PATIENT COMPLAINED OF PAIN AND HYDROCODONE WAS GIVEN FOR PAIN. SHE RATED PAIN 8/10. A LIDOCAINE PATCH WAS APPLIED TO HER LEFT HIP AREA FOR PAIN. SHE REFUSED THE PAIN PATCH ON HER LOWER BACK. SHE WORKED WITH THERAPY TODAY. MEALS ARE TO BE SETUP FOR PATIENT AND LOCATION GIVEN FOR EACH ITEM. HEELS ARE FLOATED OFF OF BED. PATIENT IS CURRENTLY LYING IN BED WITH CALL LIGHT WITHIN REACH.
--- NOTE | 2018-06-16 16:55 | NUR ---
BENNY reviewed chart and spoke with nursing and attending physician. Pt is stable for discharge. BENNY updated [facility] post-acute liaison, [place]. Pt's dtr to tour the facility this afternoon at 1530. BENNY discussed DA-124C ppwk with Keisha Gardner at [facility], who states that pt does not trigger a Level 2 assessment, due to her discharge dx from [facility] being dementia. Level 2 documentation from [facility] provided to BENNY. BENNY updated Sapphire at [facility], who will contact [facility] to confirm all is in place. BENNY spoke with pt's DPOA, Moses, via phone to provide update. Moses will be traveling back to on Tuesday. BENNY is following to assist as needed with discharge planning.
[2018-06-16 19:15] VITALS: BP 128/65
--- NOTE | 2018-06-17 02:15 | NUR ---
ASSUMED CARE OF PATIENT AT 1900. VSS. ASSESSMENT COMPLETED AT 2013 AND IS DOCUMENTED. PRN NORCO X2 GIVEN FOR C/O LOWER BACK PAIN RATED 7/10 WITH DESIRED EFFECT ACHIEVED. SKIN PROTECTANT APPLIED TO BILAT HEELS AND FLOATED OFF BED. PT HAS BEEN RESTLESS TONIGHT AND UNABLE TO STAY ASLEEP. PT CURRENTLY RESTING IN BED IN NO ACUTE DISTRESS. CALL LIGHT WITHIN REACH. BED LOCKED AND IN LOWEST POSITION. WCTM.
--- NOTE | 2018-06-17 04:22 | NUR ---
THIS NURSE AGREES WITH ASSESSMENT AND NOTES BY BALLOON MAKER ON THIS PATIENT.
--- NOTE | 2018-06-17 07:30 | NUR ---
ASSUMED PATIENT AND CARES AT 0715, PATIENT IN BED ASLEEP, REPORTED PATIENT WENT TO SLEEP AROUND 0300, NO S/S OF PAIN DISCOMFORT OR DISTRESS AT THIS TIME, NO IV ACCESS, RIGHT HEEL OFF LOADED WITH PILLOW, NO EDEMA NOTED, PATIENT WOKE UP SITTING ON SIDE OF BED C/O BACK PAIN, NURSES REPOSITIONED PATIETN BACK IN BED, NURSE TO ADMINISTER PAIN MEDICATION FOR RELIEF, PERSONAL BELONGIGNS AND CALL LIGHT IN REACH, WILL CONTINUE TO MONITOR
[2018-06-17 08:30] VITALS: BP 131/62
--- NOTE | 2018-06-17 16:13 | NUR ---
I AGREE WITH NURSING ASSESSMENT DONE BY STACY/YULIA AND NURSING NOTE.
[2018-06-17 20:27] VITALS: BP 116/63
--- NOTE | 2018-06-18 03:36 | NUR ---
ASSUMED CARE OF PATIENT AT 1900. VSS. ASSESSMENT COMPLETED AT 2026 AND IS DOCUMENTED. PRN NORCO GIVEN FOR C/O LOWER BACK PAIN WITH DESIRED EFFECT ACHIEVED. SKIN PROTECTANT APPLIED TO BILAT HEELS. HEELS FLOATED WITH PILLOW. PT CURRENTLY SLEEPING SOUNDLY IN BED IN NO ACUTE DISTRESS. CALL LIGHT WITHIN REACH. BED LOCKED AND IN LOWEST POSITION. WCTM.
--- NOTE | 2018-06-18 03:52 | NUR ---
THIS NURSE AGREES WITH ASSESSMENT AND NOTES BY DRYWALL TAPER HELPER ON THIS PATIENT.
[2018-06-18 08:00] VITALS: BP 122/66
--- NOTE | 2018-06-18 08:31 | NUR ---
ASSUMED PATIENT AND CARES AT 0715, PATIENT INITIALLY IN BED ASLEEP, PATIENT SOON WOKE UP REQUESTING TO USE BATHROOM, PATIENT UP WITH WALKER PER ASSIST X1 TO THE BATHROOM, PATIENT STOOD AT SINK TO WASH HANDS PRIOR TO GOING BACK TO BED, A&OX4, C/O PAIN 8/ TO LOWER SPINE HIPS AND NECK, VITALS AND ASSESSMENT COMPLETE PRIOR TO MEDICATION ADMINISTRATION, PATIENT SET UP TO EAT BREAKFAST, BREAKFAST SET UP FOR INDEPENDENT EATING, PERSONAL BELONGINGS AND CALL LIGHT IN REACH, WILL CONTINUE TO MONITOR
[2018-06-18 20:03] VITALS: BP 113/56
--- NOTE | 2018-06-19 04:10 | NUR ---
PATIENT ALERT AND ORIENTED X3-4. BED ALARM ON AND PATIENT SETTING IT OFF DURING THE NIGHT. MEDICATED X1 FOR BACK PAIN WITH GOOD RESULTS. PATIENT ASKING FOR SLEEPING AIDE AT 0330, NOT GIVEN, RESTLESS AFTER THAT TIME WITH CONFUSION. JORDY GARAY.
[2018-06-19 06:26] VITALS: BP 114/56
--- NOTE | 2018-06-19 10:36 | NUR ---
ASSUMED CARE OF PATIENT THIS MORNING. PATIENT IS A&OX4. SHE GETS UP W/MINIMUM ASSIST WITH A WALKER. ALL MEALS NEED TO BE SETUP FOR PATIENT. PATIENT WAS GIVEN PAIN MEDICATION THIS MORNING FOR LOWER BACK PAIN. SHE DOES NOT HAVE ANY IV ACCESS. TOLERATES ORAL MEDICATIONS LONG YOU PLACE THEM IN HER MOUTH AND HAND HER FLUIDS TO DRINK. PATIENT IS CURRENTLY SITTING IN RECLINER WITH CALL LIGHT WITHIN REACH. SHE CALLS OUT APPROPRIATELY FOR ASSISTANCE.
--- NOTE | 2018-06-19 13:46 | NUR ---
PT. DISCHARGING TODAY TO [facility]. FAXED DC ORDERS/SUMMARY TO FACILITY SPOKE WITH KAYLEIGH IN ADM, SHE RECEIVED DC ORDERS SHE ARRANGED TRANSPORT VIA WC [facility]AN FOR 1630 TODAY LEFT [facility] WITH FAMILY (ALECIA) OF DC AND TIME OF TRANSPORT. UNIT NOTIFIED AND CHART COPY PER US. RN TO CALL REPORT TO\ [phone].
--- NOTE | 2018-06-19 17:18 | NUR ---
PATIENT DISCHARGED TO NURSING FACILITY, [facility]. ALL BELONGING PACKED UP AND WHEELCHAIR VAN TRANSPORTER WAS GIVEN PATIENTS PAPERWORK.
--- NOTE | 2018-06-20 14:34 | NUR ---
SW received call from pt's DPOA, Moses, regarding pt's discharge disposition and to follow up on Medicaid application. SW reviewed chart. Pt was discharged yesterday (06/19) to [facility]. Pt's dtr, Anna, was notified of discharge. BENNY discussed with [facility] post acute liaison, who states they accepted pt as Medicaid pending and will work with pt's DPOA to complete application. SW discussed with [employer]. Pt's DPOA states that the Medicaid application was started while pt was on the [facility] unit. Pt's DPOA aware of pt's disposition and agreeable. No additional SW needs identified at this time, but is available to assist should needs arise.
== END 2018-06-19 17:27 | DRG 299 ==
LOC: 4E 15:49 → SICU 06-10 18:35 → ENTRNSPT 06-14 14:07 → EDTRNSPTSTS 06-14 14:09 → SICU 06-19 17:27
PROVIDERS: ADMIT Family Medicine
PROC: B4181ZZ Fluoroscopy of Bilateral Renal Arteries using Low Osmolar Contrast (ICD-10-PCS; principal; 2018-06-09)
PROC: B41D1ZZ Fluoroscopy of Aorta and Bilateral Lower Extremity Arteries using Low Osmolar Contrast (ICD-10-PCS; principal; 2018-06-09)
DX: I70.201 Unspecified atherosclerosis of native arteries of extremities, right leg (principal); G93.41 Metabolic encephalopathy; F03.91 Unspecified dementia, unspecified severity, with behavioral disturbance; I69.354 Hemiplegia and hemiparesis following cerebral infarction affecting left non-dominant side; E78.00 Pure hypercholesterolemia, unspecified; F32.9 Major depressive disorder, single episode, unspecified; H54.8 Legal blindness, as defined in USA; E78.5 Hyperlipidemia, unspecified; H35.52 Pigmentary retinal dystrophy; G47.00 Insomnia, unspecified; K59.00 Constipation, unspecified; M62.84 Sarcopenia; M54.5 Low back pain; G89.29 Other chronic pain; Z90.710 Acquired absence of both cervix and uterus; Z98.42 Cataract extraction status, left eye; Z98.41 Cataract extraction status, right eye; Z87.81 Personal history of (healed) traumatic fracture; Z79.899 Other long term (current) drug therapy; Z88.5 Allergy status to narcotic agent; Z88.8 Allergy status to other drugs, medicaments and biological substances
CPT/HCPCS: 10783; 15002